=== PATIENT | female | born 1930 | race Caucasian/White ===

== ENCOUNTER 2017-03-22 10:38 | Inpatient (IN) | payer OTHER, BC ==
[2017-03-22 11:45] LABS: % IMMATURE GRANULYOCYTES 0.4 % (0.0-1.1); ABSOLUTE IMMATURE GRANULOCYTES 0.05 10^3/uL (0.00-0.10); ADD DIFF? NO; ADD MORPH? NO; ADD SCAN? NO; ATYPICAL LYMPHOCYTE FLAG 0 (0-99); FRAGMENT RBC FLAG 0 (0-99); HEMOGLOBIN 12.3 g/dL (12.6-16.3); LEFT SHIFT FLG 0 (0-99); LIPEMIA HEMOLYSIS FLAG 80 (0-99); MEAN CELL HEMOGLOBIN 29.4 pg (27.9-34.1); MEAN CELL HEMOGLOBIN CONCENTR. 33.2 g/dL (32.4-36.7); MEAN CELL VOLUME 88.3 fL (81.5-99.8); MEAN PLATELET VOLUME 9.9 fL (8.7-11.7); PLATELET CLUMPS FLAG 0 (0-99); PLATELET COUNT 251 10^3/uL (150-400); RED BLOOD CELL COUNT 4.19 10^6/uL (4.18-5.33); RED CELL DISTRIBUTION WIDTH 14.3 % (11.5-15.2)
--- NOTE | 2017-03-22 11:57 | EDPHY ---
H & P Stated Complaint: l elbow bursitis/drained monday at [facility] [place] placed on keflex/not better Time Seen by Provider: 03/22/17 11:15 HPI/ROS: CHIEF COMPLAINT: left elbow pain erythema HISTORY OF PRESENT ILLNESS: 86-year-old female arrives via private vehicle with her care provider. Patient states that on Monday (Today is Monday) her care provider noticed dorsal soft tissue swelling to the left elbow. She subsequently bone to [facility] and had the left olecranon bursa aspirated was started on Keflex at that time. Notes that there was no overlying erythema or induration at that time. The past 24 hours patient has developed erythema and induration to the dorsal left elbow. She has full pain-free range of motion including no pain with axial loading of the joint. No fever no chills. No nausea or vomiting. PRIMARY CARE PROVIDER: Dr. Alessia Bautista REVIEW OF SYSTEMS: A ten point review of systems was performed and is negative with the exception of the items mentioned in the HPI PAST MEDICAL & SURGICAL HISTORY: No immunocompromised condition SOCIAL HISTORY: lives by herself, has a Monday care provider PHYSICAL EXAM (Prior to examination, patient consented to physical exam, hands were washed and my usual and customary physical exam procedures followed) 1) GENERAL: Well-developed, well-nourished, alert and oriented. Appears to be in no acute distress. 2) HEAD: Normocephalic, atraumatic 3) HEENT: Pupils equal, round, reactive to light bilaterally. Sclera anicteric. Nasopharynx, oropharynx, clear, no lesions. Ears bilaterally with normal tympanic membranes. 4) NECK: Full range of motion, no meningeal signs. 5) LUNGS: Clear auscultation bilaterally, no wheezes, no rhonchi, no retractions. 6) HEART: Regular rate and rhythm, no murmur, no heave, no gallop. 7) ABDOMEN: No guarding, no rebound, no focal tenderness, negative McBurney's, negative Cheung's, negative Rovsing's, negative peritoneal sign, 8) MUSCULOSKELETAL: Left upper extremity: Puncture wounds over the olecranon bursal region noted. There is extensive erythema, induration around this area. No axillary adenopathy. She has full range of motion including supination pronation which is pain free. No pain with axial loading of the joint. No drainage. 9) BACK: No CVA tenderness, no midline vertebral tenderness, no fluctuance, no step-off, no obvious trauma, no visual or palpable abnormality. 10) SKIN: No rash, no petechiae. 11) Psychiatric: Patient is oriented X 3, there is no agitation. DIFFERENTIAL DIAGNOSIS: In no particular order including but not limited septic arthritis, septic bursitis, cellulitis - Personal History Current Tetanus/Diphtheria Vaccine: Unsure Tetanus Vaccine Date: 04/10/13 - Medical/Surgical History Hx Asthma: No Hx Chronic Respiratory Disease: No Hx Diabetes: No Hx Cardiac Disease: Yes Hx Renal Disease: No Hx Cirrhosis: No Hx Alcoholism: No Hx HIV/AIDS: No Hx Splenectomy or Spleen Trauma: No Other PMH: pacemaker ra - Social History Smoking Status: Never smoked Constitutional: Initial Vital Signs Temperature (C) 36.3 C 03/22/17 10:49 Heart Rate 80 03/22/17 10:49 Respiratory Rate 18 03/22/17 10:49 Blood Pressure 116/86 H 03/22/17 10:49 O2 Sat (%) 98 03/22/17 10:49 O2 Delivery Mode Room Air Allergies/Adverse Reactions: Penicillins Allergy (Severe, Verified 03/22/17 10:48) Hives hydrocodone [Hydrocodone] Allergy (Intermediate, Verified 03/22/17 10:48) nickel [Nickel] Allergy (Verified 03/22/17 10:48) Home Medications: Medication Instructions Recorded Ascorbic Acid [Vitamin C 500 mg 1,000 mg PO DAILY18 04/10/13 (*)] Brimonidine 0.15% [Alphagan P 1 drops EACHEYE BID 04/10/13 0.15%] Estrogens,Conjugated [Premarin 0.625 mg PO Q2D@04/10/13 0.625 MG (*)] Etanercept [Enbrel] 50 mg SQ [place]@04/10/13 Folic Acid [Folic Acid 1 MG (*)] 1 mg PO BID 04/10/13 Methotrexate Sodium [Methotrexate] 15 mg PO SA@04/10/13 Thyroid [[place] Thyroid 60 MG (*)] 60 mg PO DAILYAC 04/10/13 predniSONE [Prednisone] 3 mg PO DAILY@04/10/13 Acetaminophen [Tylenol ES 500 mg 1,000 mg PO DAILY PRN 05/09/14 (*)] Carvedilol [Coreg (*)] 3.125 mg PO DAILY@05/09/14 Dextroamphetamine/Amphetamine 5 mg PO DAILY 05/09/14 [Adderall Xr 5 mg Capsule] Docusate Sodium [Colace 100 MG (*)] 100 mg PO HS 05/09/14 Herbals/Supplements -Info Only 1 ea PO DAILY 05/09/14 Omeprazole [Prilosec] 40 mg PO HS 05/09/14 Sorbitol/Constantin St#1/Mal AC/Ca pH 0.3 gm MM TID PRN 05/09/14 [Numoisyn Lozenge] Spironolactone [Aldactone 25 MG 12.5 mg PO DAILY 05/09/14 (*)] Vit A/Vit C/Vit E/Zinc/Copper 1 each PO DAILY 05/09/14 [Preservision Areds Softgel] traMADol [Ultram 50 mg (*)] 50 - 100 mg PO TID PRN 05/09/14 Cholecalciferol (Vitamin D3) 2,000 unit PO BID 03/22/17 [Vitamin D3] Furosemide [Lasix 20 MG (*)] 20 mg PO DAILY 03/22/17 Ibuprofen [Motrin (*)] 400 mg PO Q6HRS PRN 03/22/17 Meloxicam [Mobic 7.5 mg] 7.5 mg PO DAILY 03/22/17 Memantine HCl 10 mg PO DAILY 03/22/17 Valsartan [Diovan (*)] 40 mg PO DAILY 03/22/17 lamoTRIgine [LamICTAL] 50 mg PO DAILY 03/22/17 risperiDONE [Risperdal 0.25mg (*)] 0.25 mg PO HS 03/22/17 Medical Decision Making - Diagnostics Imaging Results: Imaging Impressions Elbow X-Ray 03/22/17 11:33 Impression: Subcutaneous air over the dorsal aspect of the olecranon in the region of the bursa, potentially related to recent intervention or necrotizing fasciitis. Otherwise negative. Exam results discussed with Desmond Fish PA-C, at 12:50 PM. Extremity Venous Study 03/22/17 11:33 Impression: No evidence of vein thrombosis in the left arm. Results called and discussed with Desmond GARCIA on 03/22/2017 at 12:21 ED Course/Re-evaluation: Discussed case Dr. Peggy Nieves in the ER. Patient notes worsening erythema to her dorsal left elbow which is consistent with worsening cellulitis and has failed outpatient treatment with oral Keflex. I have reviewed her medical records. The bursal fluid aspirated 2 days ago is positive for gram-positive cocci. Sensitivities not available at this time. In reviewing the patient's old medical records she has a July 2011 nasopharyngeal swab which was MSSA. 11:54 a.m.: Phone consultation with hospitalistFannie, admit to Dr. garcía seen the. Have reviewed the patient's prior medical records and she has no history of MR , does have documented MSSA history. Will administer IV Ancef until sensitivities from 03/20 are available - Data Points Laboratory Results: Laboratory Results 03/22/17 11:30 03/22/17 11:30 03/22/17 03/22/17 11:30 11:30 WBC 11.74 10^3/uL H 10^3/uL (3.80-9.50) RBC 4.19 10^6/uL 10^6/uL (4.18-5.33) Hgb 12.3 g/dL L g/dL (12.6-16.3) Hct 37.0 % L % (38.0-47.0) MCV 88.3 fL fL (81.5-99.8) MCH 29.4 pg pg (27.9-34.1) MCHC 33.2 g/dL g/dL (32.4-36.7) RDW 14.3 % % (11.5-15.2) Plt Count 251 10^3/uL 10^3/uL (150-400) MPV 9.9 fL fL (8.7-11.7) Neut % (Auto) 77.8 % H % (39.3-74.2) Lymph % (Auto) 11.3 % L % (15.0-45.0) [place] % (Auto) 8.3 % % (4.5-13.0) Eos % (Auto) 1.4 % % (0.6-7.6) Baso % (Auto) 0.8 % % (0.3-1.7) Nucleat RBC Rel Count 0.0 % % (0.0-0.2) Absolute Neuts (auto) 9.13 10^3/uL H 10^3/uL (1.70-6.50) Absolute Lymphs (auto) 1.33 10^3/uL 10^3/uL (1.00-3.00) Absolute Monos (auto) 0.98 10^3/uL H 10^3/uL (0.30-0.80) Absolute Eos (auto) 0.16 10^3/uL 10^3/uL (0.03-0.40) Absolute Basos (auto) 0.09 10^3/uL 10^3/uL (0.02-0.10) Absolute Nucleated RBC 0.00 10^3/uL 10^3/uL (0-0.01) Immature Gran % 0.4 % % (0.0-1.1) Immature Gran # 0.05 10^3/uL 10^3/uL (0.00-0.10) Sodium 137 mEq/L mEq/L (134-144) Potassium 4.5 mEq/L mEq/L (3.5-5.2) Chloride 103 mEq/L mEq/L (97-110) Carbon Dioxide 26 mEq/l mEq/l (22-31) Anion Gap 8 mEq/L mEq/L (8-16) BUN 19 mg/dL mg/dL (7-23) Creatinine 1.0 mg/dL mg/dL (0.6-1.0) Estimated GFR 53 Glucose 162 mg/dL H mg/dL (70-100) Calcium 8.9 mg/dL mg/dL (8.5-10.4) Medications Given: Discontinued Medications Cefazolin Sodium/Dextrose (Ancef 1 Gm (Premix)) 50 mls @ 200 mls/hr IV EDNOW ONE PRN Reason: Protocol Stop: 03/22/17 12:11 Last Admin: 03/22/17 12:23 Dose: 50 mls Departure - Departure Disposition: [facility]
[2017-03-22 12:04] LABS: ANION GAP 8 mEq/L (8-16); CALCIUM 8.9 mg/dL (8.5-10.4); CARBON DIOXIDE 26 mEq/l (22-31); CHLORIDE 103 mEq/L (97-110); GLOMERULAR FILTRATION RATE 53; GLUCOSE 162 mg/dL (70-100); POTASSIUM 4.5 mEq/L (3.5-5.2); SODIUM 137 mEq/L (134-144)
[2017-03-22] MEDS ORDERED: ONDANSETRON DISINTEGRATING 4 MG TAB PO PRN (12:32)
[2017-03-22] MEDS ORDERED: ONDANSETRON 4 MG/2 ML VIAL IVP PRN (12:32)
[2017-03-22] MEDS ORDERED: VANCOMYCIN 500 MG in D5W 100 ML IV SCH (13:30)
[2017-03-22] MEDS ORDERED: [UNRECOGNIZED DRUG - OTHER] MM PRN (14:02)
[2017-03-22] MEDS ORDERED: SORBITOL MM PRN ×2 (14:02→14:22)
[2017-03-22] MEDS ORDERED: [UNRECOGNIZED DRUG - OTHER] MM PRN (14:22)
--- NOTE | 2017-03-22 14:23 | GHP ---
[f rep st] HISTORY AND PHYSICAL DATE OF ADMISSION: 03/22/2017 CHIEF COMPLAINT: Left elbow and arm pain. HISTORY OF PRESENT ILLNESS: An 86-year-old female with a history of rheumatoid arthritis, cardiac d isease with chronic bursal enlargement of her left elbow who presented [facility] the outside [facility]2017 and had drainage of her left elbow bursa. Since that time, has developed increas ing swelling of her left upper extremity, including her wrist, and erythema extending from her elbow , upper arm, and down her arm. Patient presented for evaluation after being told by urgent care to come to the ER. In the emergency department, patient denies any subjective fevers or chills. Denie s any headache, vision changes, dizziness chest pain, shortness of breath. Denies any abdominal daniel n, nausea, diarrhea, dysuria, hematuria, or lower extremity edema. She does have chronic joint comp laints from her rheumatoid arthritis, which have been stable. Denies any other rashes elsewhere. PAST MEDICAL HISTORY: 1. Rheumatoid arthritis. 2. History of heart block with a permanent pacemaker. 3. Hypothyroidism. 4. Hypertension. 5. Gastroesophageal reflux disease. 6. Chronic steroid use secondary to rheumatoid arthritis. 7. Glaucoma. 8. Cardiomyopathy. SOCIAL HISTORY: Negative for tobacco. Occasional alcohol. No illicit drugs or marijuana. FAMILY HISTORY: Positive for rheumatoid arthritis in her mother. ADVANCED DIRECTIVES: Patient wishes to be full cor, full tube. Her sister would be her medical dec ision maker. REVIEW OF SYSTEMS: A 10-point review of systems is negative with the exception of that reported in the HPI. PHYSICAL EXAMINATION: VITAL SIGNS: Blood pressure is 126/67, heart rate 78, respiratory rate 16, 9 5% on room air, 37.2. GENERAL: This is a very pleasant, healthy-appearing, elderly female in no ac [place] distress. HEENT: Notable for moist mucous membranes. Eye exam is negative for any icterus. C ARDIAC: Patient is regular rate and rhythm. A quiet systolic murmur is appreciated. PULMONARY: C lear to auscultation bilaterally with good respiratory effort. GASTROINTESTINAL: Positive bowel so unds. Abdomen is soft and nontender. MUSCULOSKELETAL: No lower extremity edema is appreciated. R ight upper extremity has no swelling. Left upper extremity, there is bursal inflammation and enlarg ement of the elbow. There is erythema extending midway up the upper arm as well as nearly to the wr ist on the lower dorsal aspect of the left arm. There is no streaking or axillary lymphadenopathy a ppreciated. SKIN: Notable erythema as described above. No other rashes are appreciated. NEUROLOG IC: She is alert and oriented x3. PSYCHIATRIC: She is pleasant and cooperative on interview and e xamination. DATA: White count is 11.7, hematocrit 37, platelets of 251. Bursal fluid from 03/20/2017 is growin g gram-positive cocci. Sensitivities are pending. Creatinine is 1.0, sodium 137. Elbow x-ray, gricel cottrell I personally reviewed and interpreted, shows no bony fractures. There is notable subcutaneous ai r over the olecranon. ASSESSMENT AND PLAN: This is an 86-year-old female presenting with left elbow pain. 1. Acute septic bursitis. Patient had fluid drained 03/20 with identified Gram positive cocci. Se nsitivities are not available at this time. Patient does, however, have no history of methicillin-r esistant Staphylococcus aureus in the past. I have discussed the case with Infectious Disease. The y will consult and said vancomycin is a reasonable choice to begin with. I will write for this curr ently and allow them to make changes going forward. Suspect we will need to involve Orthopedic Surg loreto but again, will wait for Infectious Disease to evaluate the patient. 2. Acute cellulitis associated with recent bursal drainage. Again, will initiate vancomycin and tr eat with antiinflammatories. 3. Rheumatoid arthritis. Patient is on chronic low-dose prednisone, which we will continue at this time, as well as her other RA medications. 4. History of complete heart block. Patient has a permanent pacemaker. Will continue her beta blo ckade. 5. Cardiomyopathy. Patient appears clinically compensated. Will continue her stable home medicati ons without alteration at this time. 6. Prophylaxis with Lovenox. DIET: Cardiac. DISPOSITION: I expect greater than 2 midnights. The patient is 86, presenting with septic bursitis requiring IV antibiotics. Infectious Disease and likely Orthopedic consultation I have discussed t he case with the emergency room physician. Patient will be triaged to the medical-surgical floor [facility]. /[id number]/[facility]
[2017-03-22] MEDS: ASCORBIC ACID 500 MG TAB PO SCH (19:58)
[2017-03-22] MEDS: traMADol 50 MG TAB PO PRN (19:58)
[2017-03-22] MEDS: risperiDONE 0.25 MG TAB PO SCH (19:59)
[2017-03-22] MEDS: DOCUSATE SODIUM 100 MG CAP PO SCH (19:59)
[2017-03-22] MEDS: PANTOPRAZOLE SODIUM 40 MG TAB PO SCH (19:59)
[2017-03-22] MEDS: CHOLECALCIFEROL VIT D3 2,000 UNITS TAB/CAP PO SCH (19:59)
[2017-03-22] MEDS: FOLIC ACID 1 MG TAB PO SCH (19:59)
--- NOTE | 2017-03-22 20:20 | GCON ---
[f rep st] CONSULTATION INFECTIOUS DISEASE CONSULTATION DATE OF CONSULTATION: 03/22/2017 REFERRING PHYSICIAN: Connie Cobos MD REASON FOR CONSULTATION: Septic bursitis of the left olecranon. 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 Subsequently, cultures are showing gram-positi ve cocci with ID and the sensitivities pending. In the interim, patient had progressive erythema on her arm and presented to the emergency room because of no improvement and microbiologic evidence. In the emergency room, patient underwent blood cultures, laboratory evaluation and x-ray. X-ray alex wed some air in the subcutaneous tissues. The patient was admitted to the hospital for further lamonte gement. The patient was given a dose of cefazolin in the emergency room and subsequently started on vancomycin. PAST MEDICAL HISTORY: 1. Rheumatoid arthritis since her 30s. 2. History of heart block with pacemaker in place. 3. Hypothyroidism. 4. Hypertension. 5. Gastroesophageal reflux disease. 6. Glaucoma. 7. Cardiomyopathy. PAST SURGICAL HISTORY: Tonsillectomy and adenectomy in childhood. SOCIAL HISTORY: No tobacco. Occasional alcohol. No illicits. Patient moved to [place] in 1979. She is a . She has 1 natural child, 3 adopted children. 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 FAMILY HISTORY: Positive for rheumatoid arthritis in her mother. REVIEW OF SYSTEMS: A complete 10-point review of systems was performed and is negative except as me ntioned in the HPI. ALLERGIES: Penicillin causes an itchy rash in 1953. Patient strongly does not want a penicillin ag ent. MEDICATIONS: The patient received 1 g dose of cefazolin, 1 dose of vancomycin 500 mg. She is on Ty lenol, vitamin C, Alphagan drops, Coreg 325 daily, vitamin D 2000 units twice daily, Colace 100 mg d aily, Lovenox, Premarin 0.625, folic acid 1 mg daily, Lasix 20 mg daily, Lamictal 50 mg daily, Namen da 10 mg daily, Zofran as needed, Protonix 40 mg daily, Risperdal 0.25 mg at bedtime, Aldactone 12.5 mg daily, thyroid medicine 60 mg daily, Ultram 50-100 as needed, valsartan 40 mg daily. PHYSICAL EXAMINATION: VITAL SIGNS: Blood pressure 126/67, heart rate 78, respiratory rate 16, satu ration 95% on room air, temperature 37.2. GENERAL: This is a very pleasant, elderly woman, talkati ve in no acute distress. HEENT: Pupils reactive bilaterally. Oropharynx: No oral ulcerations or exudates. Fair dentition. NECK: Supple. No lymphadenopathy. CARDIOVASCULAR: Regular rate. She had a pacemaker placed in the left upper chest without redness or tenderness. CHEST: Clear to ausc ultation bilaterally except for crackles in the left base. ABDOMEN: Soft, nontender. Bowel sounds are present. EXTREMITIES: She had erythema to the mid upper arm with swelling of her arm overall and obvious bursal swelling that was functioning. She had full range of motion of her left elbow. She had tenderness to palpation over the lateral portion of her arm but no crepitus was detected. S he had obvious changes in the upper extremities consistent with chronic rheumatoid arthritis. SKIN: No rashes other than erythema noted as above. Neurologic: She is alert and oriented x4. Motor w as grossly intact. LABORATORY: White count 11,000, hematocrit 37, platelets 251, 77% neutrophils. Creatinine 1.0. CR P, LFTs are pending at time of dictation. ASSESSMENT AND PLAN: An 86-year-old woman with rheumatoid arthritis on Enbrel and chronic steroids presents with septic bursitis of the left elbow with associated cellulitis. Clinically, patient's e xam is not consistent with necrotizing fasciitis. Air within the soft tissues may have been related to prior aspiration. 1. Left upper extremity cellulitis. 2. Left olecranon septic bursitis with culture showing staphylococcus species. 3. Immune compromised secondary to Enbrel therapy. RECOMMENDATIONS: 1. Monitor blood cultures as patient is at high risk for complication of bacteremia. 2. Would adjust vancomycin to 1 g IV daily with normal creatinine clearance for age, but suspect guevara briggs has MSSA as remote cultures from 2011 show MSSA. 3. Would recommend consultation of Orthopedics as septic bursitis usually requires repeated aspirat ion and/or washout for resolution. 4. Patient educated on elevation of left lower extremity. 5. Discussed with patient need for IV antibiotics and PICC line placement after 48 hours of antibio tics. Discussed risks and benefits of IV antibiotics and potential need for surgical intervention. Time was 70 minutes with greater than 50% time spent with education and counseling of issues describ ed above. We will continue to follow patient on a daily basis. Thank you for this consultation. /[id number]/[facility]
[2017-03-22 20:29] LABS: ALBUMIN 3.5 g/dL (3.5-5.0); BILIRUBIN,TOTAL 0.5 mg/dL (0.1-1.4); BILIRUBIN-CONJUGATED 0.3 mg/dL (0.0-0.5); BILIRUBIN-UNCONJUGATED 0.2 mg/dL (0.0-1.1); TOTAL PROTEIN 6.5 g/dL (6.3-8.2)
[2017-03-22 20:41] LABS: C-REACTIVE PROTEIN 134.5 mg/L (<10.0)
[2017-03-22] MEDS ORDERED: NON-FORMULARY NEW DRUG (Omeprazole [Prilosec] 40 MG) PO SCH (21:00)
[2017-03-22] MEDS ORDERED: NON-FORMULARY NEW DRUG (Cholecalciferol (Vitamin D3) [Vitamin D3] 2,000 UNIT) PO SCH (21:00)
[2017-03-22] MEDS: BRIMONIDINE 0.15% 5 ML OPHT.BTL EACHEYE SCH (21:58)
[2017-03-22] MEDS: IBUPROFEN 200 MG TAB PO PRN (23:44)
[2017-03-23 05:33] LABS: % IMMATURE GRANULYOCYTES 0.7 % (0.0-1.1); ABSOLUTE IMMATURE GRANULOCYTES 0.08 10^3/uL (0.00-0.10); ADD DIFF? NO; ADD MORPH? NO; ADD SCAN? NO; ATYPICAL LYMPHOCYTE FLAG 0 (0-99); FRAGMENT RBC FLAG 0 (0-99); HEMATOCRIT 32.6 % (38.0-47.0); HEMOGLOBIN 10.9 g/dL (12.6-16.3); LEFT SHIFT FLG 10 (0-99); LIPEMIA HEMOLYSIS FLAG 80 (0-99); MEAN CELL HEMOGLOBIN 28.8 pg (27.9-34.1); MEAN CELL HEMOGLOBIN CONCENTR. 33.4 g/dL (32.4-36.7); MEAN CELL VOLUME 86.2 fL (81.5-99.8); MEAN PLATELET VOLUME 9.8 fL (8.7-11.7); PLATELET CLUMPS FLAG 0 (0-99); PLATELET COUNT 234 10^3/uL (150-400); RED BLOOD CELL COUNT 3.78 10^6/uL (4.18-5.33)
[2017-03-23 05:48] LABS: ANION GAP 6 mEq/L (8-16); CALCIUM 8.4 mg/dL (8.5-10.4); CARBON DIOXIDE 24 mEq/l (22-31); CHLORIDE 104 mEq/L (97-110); CREATININE 1.1 mg/dL (0.6-1.0); GLOMERULAR FILTRATION RATE 47; GLUCOSE 84 mg/dL (70-100); POTASSIUM 4.1 mEq/L (3.5-5.2); SODIUM 134 mEq/L (134-144)
[2017-03-23] MEDS: THYROID 60 MG TAB PO SCH (07:44)
[2017-03-23] MEDS: VALSARTAN 40 MG TAB PO SCH (08:44)
[2017-03-23] MEDS: SPIRONOLACTONE 25 MG TAB PO SCH (08:44)
[2017-03-23] MEDS: PRESERVISION AREDS2 FORMULA EYE VIT 1 EACH PO SCH (08:44)
[2017-03-23] MEDS: MEMANTINE HCL 5 MG TAB PO SCH (08:45)
[2017-03-23] MEDS: FUROSEMIDE 20 MG TAB PO SCH (08:45)
[2017-03-23] MEDS: FOLIC ACID 1 MG TAB PO SCH ×2 (08:46→20:07)
[2017-03-23] MEDS: lamoTRIgine 100 MG TAB PO SCH (08:46)
[2017-03-23] MEDS: predniSONE 1 MG TAB PO SCH (08:47)
[2017-03-23] MEDS: CHOLECALCIFEROL VIT D3 2,000 UNITS TAB/CAP PO SCH ×2 (08:47→20:07)
[2017-03-23] MEDS: CARVEDILOL 3.125 MG TAB PO SCH (08:48)
[2017-03-23] MEDS: DEXTROAMPHETAMINE PO SCH (08:56)
[2017-03-23] MEDS: AMPHETAMINE PO SCH (08:56)
[2017-03-23] MEDS ORDERED: D5W IV SCH (09:00)
[2017-03-23] MEDS ORDERED: NON-FORMULARY NEW DRUG (Meloxicam [Mobic 7.5 Mg] 7.5 MG) PO SCH (09:00)
[2017-03-23] MEDS ORDERED: VANCOMYCIN 750 MG in D5W 150 ML IV SCH (09:00)
[2017-03-23] MEDS ORDERED: AMPHETAMINE PO SCH (09:00)
[2017-03-23] MEDS ORDERED: DEXTROAMPHETAMINE PO SCH (09:00)
[2017-03-23] MEDS ORDERED: Herbals/Supplements -Info Only PO SCH (09:00)
[2017-03-23] MEDS ORDERED: NON-FORMULARY NEW DRUG (Vit A/Vit C/Vit E/Zinc/Copper [Preservision Areds Softgel] 1 EACH) PO SCH (09:00)
[2017-03-23] MEDS ORDERED: VANCOMYCIN HCL/NORMAL SALINE 250 ML IV SCH (09:00)
[2017-03-23] MEDS ORDERED: VANCOMYCIN IV SCH (09:00)
[2017-03-23] MEDS ORDERED: NON-FORMULARY NEW DRUG (Memantine Hcl [Memantine Hcl] 10 MG) PO SCH (09:00)
[2017-03-23] MEDS: ENOXAPARIN 40 MG/0.4 ML SYR SC SCH (10:46)
[2017-03-23] MEDS: BRIMONIDINE 0.15% 5 ML OPHT.BTL EACHEYE SCH ×2 (10:46→20:07)
[2017-03-23] MEDS ORDERED: BUPIVACAINE 0.5% 30 ML SDV ONE (13:01)
[2017-03-23] MEDS ORDERED: BACITRACIN 50,000 UNITS/10 ML SYR IRR ONE (13:03)
--- NOTE | 2017-03-23 13:08 | HOSPPROG ---
Hospitalist Progress Note Assessment/Plan: Arlyn Lema is an 86 y/o female who presented to the ER with left elbow and arm pain. Today is my first encounter with the patient, chart reviewed. Discussed her care with Dr Brian and Dr Lema. *Septic arthritis of left olecranon vanco I & D today w Dr Mei *RA on chronic steroid us *Hx of CHB/pacer *cardiomyopathy *anemia follow *renal insufficiency will follow *DVT prophylaxis LMWH *Plan: to OR this afternoon with orthopedics / appreciate their involvement/ repeat labs in a.m. Subjective: Arlyn said the area above the left elbow is painful. Objective: Vital Signs Temp Pulse Resp BP Pulse Ox 36.8 C 87 18 101/66 95 03/23/17 07:58 03/23/17 07:58 03/23/17 07:58 03/23/17 07:58 03/23/17 07:58 Laboratory Results 03/23/17 04:57 03/23/17 04:57 03/22/17 03/23/17 03/24/17 05:59 05:59 05:59 Intake Total 50 Balance 50 - Physical Exam Constitutional: no apparent distress, appears nourished Ears, Nose, Mouth, Throat: hearing normal Cardiovascular: regular rate and rhythym, systolic murmur (soft) Respiratory: no respiratory distress Gastrointestinal: normoactive bowel sounds Skin: warm, other (left elbow boggy with dry skin/ slightly warm, some erythema noted toward the base of the triceps ) Musculoskeletal: full muscle strength Neurologic: AAOx3 Psychiatric: interacting appropriately, not anxious, not encephalopathic ICD10 Worksheet Patient Problems: Problems Problem Status Onset Cardiomyopathy Acute Mitral valve regurgitation Acute S/P biventricular cardiac pacemaker procedure Acute
--- NOTE | 2017-03-23 13:15 | SOAPPROG ---
[facility] Progress Note Assessment/Plan: Assessment: L elbow septic olecranon bursitis (+ staph), now on Vanco. Per med svce, pt is med clear for this minor procedure. Plan: Arlyn will require I&D, however, we must delay surgery until 430pm today , as she was not made NPO until I was consulted today. She finished b'fast at 0830 and black coffee at 1045. In addition, she received enox 40 SQ this AM, making her higher risk for selina-op bleeding @ surgi-site. At this time, please assure the following: -Strict NPO -D/c enoxaparin, use mech proph, including knee-hi TEDs and SCDs BLEs -Cont Vanco dosing per standard Rx'd schedule -Consent in chart after discussing R/B/A to surgery -In the future, I strongly urge you to consider consulting ortho upon admission for clear surgical entities such as septic bursitis, so the patient can be appropriately managed pre-op in prep for this required, urgent surgery -Call with any questions or concerns 03/23/17 13:15 Subjective: 86yo F with L elbow swelling, redness, warmth and fluid collection, recently underwent aspiration at an , now growing staph. She was admitted yesterday for septic olectranon bursitis, I've been consulted today for eval/management. She denies any significant pain or stiffness, noting she's had this swollen area for weeks. Objective: Vital Signs Temp Pulse Resp BP Pulse Ox 36.8 C 87 18 101/66 95 03/23/17 07:58 03/23/17 07:58 03/23/17 07:58 03/23/17 07:58 03/23/17 07:58 Laboratory Results 03/23/17 04:57 03/23/17 04:57 03/22/17 03/23/17 03/24/17 05:59 05:59 05:59 Intake Total 50 Balance 50 Afeb, VSS. + olec FC c/w bursitis. LUE compartments soft, no SQ crep, +edema/ calor/eythema about elbow. ROM 0-140, P&S 90. DNVI BUEs. CRP 135. WBC 11+. ICD10 Worksheet Patient Problems: Problems Problem Status Onset Cardiomyopathy Acute Mitral valve regurgitation Acute S/P biventricular cardiac pacemaker procedure Acute
--- NOTE | 2017-03-23 13:46 | PCMIDPN ---
Assessment/Plan: Assessment: L olecranon bursitis -- subacute. Prior aspirate cultures with both staph simulans and staph epidermidis. Both of these could cause subacute presentation. Regardless at this point the inflammation is severe enough that it requires I and D. Going later today to OR. Continue Vancomycin. Plan: 1) Continue IV Vancomycin. 2) Await OR results. Subjective: Patient is sitting up in her chair. no complaints. Tolerating Vancomycin without issue. Objective: Vancomycin #2 Vital Signs Temp Pulse Resp BP Pulse Ox 36.8 C 87 18 101/66 95 03/23/17 07:58 03/23/17 07:58 03/23/17 07:58 03/23/17 07:58 03/23/17 07:58 Laboratory Results 03/23/17 04:57 03/23/17 04:57 03/22/17 03/23/17 03/24/17 05:59 05:59 05:59 Intake Total 50 Balance 50 C-Reactive Protein 134.5 mg/L (<10.0) H 03/22/17 19:54 - Physical Exam General Appearance: WD/WN, alert, no apparent distress, non-toxic Respiratory: lungs clear, normal breath sounds, No respiratory distress Cardiac/Chest: regular rate, rhythm, No tachycardia Extremities: non-tender, inflammation, swelling, erythema, No normal inspection Skin: normal color, warm/dry, No rash Neuro/Psych: alert, normal mood/affect, oriented x 3 ICD10 Worksheet Patient Problems: Problems Problem Status Onset Cardiomyopathy Acute Mitral valve regurgitation Acute S/P biventricular cardiac pacemaker procedure Acute
--- NOTE | 2017-03-23 16:13 | GOP ---
[f rep st] OPERATIVE REPORT DATE OF OPERATION: 03/23/2017 SURGEON: Wan Brian MD CONVALESCENT SITTER: Uma Turner PA-C. ANESTHESIA: General. ANESTHESIOLOGIST: Neal Rust MD. PREOPERATIVE DIAGNOSIS: Left elbow septic olecranon bursitis. POSTOPERATIVE DIAGNOSIS: Left elbow septic olecranon bursitis. PROCEDURE PERFORMED: Left elbow incision, irrigation, drainage, and debridement with complete olecranon bursectomy. INDICATIONS: This is an 86-year-old female with a long-standing history of left elbow rheumatoid-associated olecranon bursitis. She has a known diagnosis of RA. Apparently, 2 or so days prior to admission on 03/22/2017, the patient was seen at an urgent care and underwent elbow aspiration. These cultures are now reportedly growing staphylococcus on culture and sensitivity. Finalized speciation and sensitivities are not available. The patient has been admitted to the medicine service, and Infectious Disease was consulted. They have asked for me to consult on this inpatient and assist with surgical management. Pre- op evaluation was consistent with septic olecranon bursitis of left elbow. After discussing the risks, benefits, and alternatives to surgery, the patient agrees to proceed with surgery as listed above. The risks, benefits, and alternatives were discussed throughout, and the patient has provided a signed and witnessed informed consent, which was placed in her chart. All of her questions were answered prior to surgery. FINDINGS: Left elbow septic-appearing olecranon bursitis with purulence. No signs of intra-articular extension or more severe, extensive soft tissue infection. DESCRIPTION OF PROCEDURE: The patient was identified in the preoperative holding area, and her left elbow was signed, designating it as the operative site. She was confirmed in bilateral lower extremity LUCAS and SCDs. She had been treated with vancomycin per her standard schedule, last dose ~9am. No additional prophylactic antibiotics were utilized. The patient was taken back to the operating room, placed supine on the OR table, and general anesthesia was obtained. The left upper extremity was wrapped proximally with cast padding and a nonsterile tourniquet, which was not used during surgery, and then prepped and draped in the usual sterile manner. Standard 4cm curvilinear posterolateral incision was placed over the obvious fluid collection over the olecranon. Full-thickness dermal incision was made with a #15 blade, and then careful dissection was taken down through the subcutaneous tissues with spreading. Obvious fluid was encountered, i.e., yellow, cloudy-appearing fluid. This was captured, and swab, fluid and tissue cultures were sent. The wound was copiously irrigated with sterile saline, a total of 3 L with bacitracin. The wound was thoroughly debrided, and a complete bursectomy was performed using Metzenbaum scissors, as well as a curette and rongeur. Once all necrotic and/or nonviable tissues and infectious tissues were removed from the olecranon bursal region and the entire bursa was resected, the wound was further irrigated with sterile saline. Once all work was completed, a drain was placed in the bursa out through a separate stab incision to bulb suction. This was sutured in place. The wound was then closed in layers with 2-0 PDS, and the skin was closed with multiple interrupted 3-0 nylon sutures. Sterile postoperative surgical dressings were applied, and a posterior long-arm splint was applied. The left upper extremity was placed in a sling. The anesthesia service then took over to wake the patient up. TOURNIQUET TIME: Zero. SPECIMENS: Swab, tissue and fluid cultures were sent for culture and sensitivity. ESTIMATED BLOOD LOSS: 40 cc. DRAINS: One bulb suction drain sutured in place. IMPLANTS: None. COMPLICATIONS: None. DISPOSITION: The patient was extubated and transferred to PACU in stable condition. /[id number]/MODL MTDD
[2017-03-23] MEDS ORDERED: fentaNYL 100 MCG/2 ML INJ ONE ×2 (16:25→17:32)
[2017-03-23] MEDS ORDERED: PROPOFOL/EMULSION 500 MG/50 ML BOTTLE IV ONE (16:25)
[2017-03-23] MEDS ORDERED: DEXAMETHASONE 4 MG/ML VIAL ONE (16:25)
[2017-03-23] MEDS ORDERED: ONDANSETRON 4 MG/2 ML VIAL ONE (16:25)
[2017-03-23] MEDS ORDERED: LIDOCAINE 2% JELLY 5 ML TUBE ONE (16:29)
--- NOTE | 2017-03-23 17:23 | POSTOPPROG ---
Post Op Note Date of Operation: 03/23/17 Surgeon: Wan Brian [employer]heric [employer] Professor: Uma Turner PA-C Anesthesia: GET(General Endotracheal) Pre-op Diagnosis: Left septic olecranon bursitis Post-op Diagnosis: Left septic olecranon bursitis Procedure: Incision, drainage and debridement left elbow Inf/Abcess present in the surg proc area at time of surgery?: Yes Depth: Deep Incisional (Fascial) EBL: Minimal Drains: Other
--- NOTE | 2017-03-23 18:24 | GCON ---
[f rep st] CONSULTATION DATE OF CONSULTATION: 03/23/2017 CHIEF COMPLAINT: Left elbow swelling. HISTORY OF PRESENT ILLNESS: This is an 86-year-old female complaining of left elbow swelling x4 day s. The patient states she has a history of chronic olecranon bursitis and presented to the [facility] on March 20, 2017, at which point it was aspirated and sent for cultures, now growing gram-positive cocci. The patient returned to Urgent Care on March 22, 2017, for increasing swellin g and redness of the left elbow. Urgent Care then [facility] where she was admitted and started on IV vancomycin per Infectious Disease. Since, the patient states the pain in her left elbow has been minimal, and she has no discomfort with range of motion. The patient received enoxaparin 40 mg subcutaneously this morning. The patient last ate breakfast at 8:30 this morning, and had water and black coffee at 10:45 a.m. The patient states she otherwise feels well without any fever, chills, numbness, tingling, or weakne ss. 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 PAST SURGICAL HISTORY: Tonsillectomy and adenectomy in childhood. SOCIAL HISTORY: The patient lives independently in [place]. She has occasional alcohol use and den ies any tobacco or illicit drug use. 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 FAMILY HISTORY: Positive for rheumatoid arthritis in her mother and diabetes in her sister. REVIEW OF SYSTEMS: No other complaints after a 10-point review of systems. ALLERGIES: Penicillin and nickel. MEDICATIONS: Please see electronic health record for a complete list. PHYSICAL EXAMINATION: GENERAL: The patient is a healthy, well-appearing female. She is alert, act maggy, and in no acute distress. HEENT: Head is normocephalic and atraumatic. Nose, ears, and mouth appear normal. Eye motion is intact. NECK: Normal in appearance with midline trachea. LUNGS: C hest motion appears normal. Respirations are nonlabored. MUSCULOSKELETAL: Skin is intact over the left elbow with palpable fluid in the left olecranon bursa with surrounding erythema and calor. Fu ll range of motion of the left shoulder, elbow, wrist, and hand without discomfort. Strength and se nsation are intact. Strength is 5/5. Radial pulse 2+ with brisk capillary refill. Calves are soft and nontender with negative Homans. TEDs and SCDs are in place. SKIN: Please see dictation above . Otherwise, no other abrasions, ecchymosis or tattoos. NEUROLOGICAL: Appears alert and oriented to person, place, and time. Speech is fluid and fluent. PSYCHIATRIC: Affect is normal. ASSESSMENT AND PLAN: This is a left septic olecranon bursitis with cellulitis in the left upper ext remity. The patient will be taken to the operating room later this afternoon for incision and drainage of th e left elbow. The patient is to remain on nothing by mouth until after surgery. Hold any additiona l anticoagulation until after surgery. Continue antibiotics per Infectious Disease. Pain control a s needed. The patient understands and agrees with the treatment plan today, and all of her questions were answ ered. /[id number]/MODL
[2017-03-23] MEDS: ASCORBIC ACID 500 MG TAB PO SCH (18:32)
[2017-03-23] MEDS: traMADol 50 MG TAB PO PRN (19:32)
[2017-03-23 19:47] LABS: SEDIMENTATION RATE 33 MM/HR (0-30)
[2017-03-23] MEDS: risperiDONE 0.25 MG TAB PO SCH (20:07)
[2017-03-23] MEDS: PANTOPRAZOLE SODIUM 40 MG TAB PO SCH (20:07)
[2017-03-23] MEDS: DOCUSATE SODIUM 100 MG CAP PO SCH (20:07)
[2017-03-24 06:02] LABS: ANION GAP 7 mEq/L (8-16); CALCIUM 8.5 mg/dL (8.5-10.4); CARBON DIOXIDE 26 mEq/l (22-31); CHLORIDE 104 mEq/L (97-110); CREATININE 1.1 mg/dL (0.6-1.0); GLOMERULAR FILTRATION RATE 47; GLUCOSE 114 mg/dL (70-100); POTASSIUM 4.7 mEq/L (3.5-5.2); SODIUM 137 mEq/L (134-144)
[2017-03-24] MEDS: IBUPROFEN 200 MG TAB PO PRN (06:05)
--- NOTE | 2017-03-24 08:25 | PCMIDPN ---
Assessment/Plan: #Left septic olecranon bursitis, cultures show Staphylococcus epidermidis and Simulans both susceptible to cefazolin. Majority of erythema left upper extremity is resolved, drain was pulled today. Still with some residual swelling LUE --DC vancomycin --start renal dose cefazolin at 1 g IV Q 8 --PICC line tomorrow if blood cx neg #Confusion: suspect some early dementia that hospitalization is exacerbating. Subjective: a bit confused today pain improved cannot remember that had surgery yesterday Objective: Vital Signs Temp Pulse Resp BP Pulse Ox 36.3 C 83 18 112/60 96 03/24/17 08:00 03/24/17 08:00 03/24/17 08:00 03/24/17 08:00 03/24/17 08:00 Microbiology 03/23/17 16:47 Gram Stain - Final Elbow - Tissue 03/23/17 16:47 Gram Stain - Final Elbow - Eswab 03/23/17 16:47 Gram Stain - Final Elbow - Aspirate Laboratory Results 03/23/17 04:57 03/24/17 04:27 03/23/17 03/24/17 03/25/17 05:59 05:59 05:59 Intake Total 50 1175 Output Total 785 Balance 50 390 ESR 33 MM/HR (0-30) H 03/23/17 04:57 C-Reactive Protein 134.5 mg/L (<10.0) H 03/22/17 19:54 - Physical Exam General Appearance: alert, no apparent distress EENT: pale conjunctiva, No scleral icterus Respiratory: lungs clear, No accessory muscle use Neck: supple Cardiac/Chest: regular rate, rhythm, No systolic murmur Extremities: swelling (L UE but improved) Abdomen: non-tender, soft Skin: No rash Neuro/Psych: alert, normal mood/affect, disoriented to time - Time Spent With Patient Time Spent with Patient: greater than 25 minutes (care coordinated with ortho) Time Spent with Patient: Greater than 25 minutes spent on this patients care, greater than 50% of time spent counseling, educating, and coordinating care regarding the above mentioned plan. ICD10 Worksheet Patient Problems: Problems Problem Status Onset Cardiomyopathy Acute Mitral valve regurgitation Acute S/P biventricular cardiac pacemaker procedure Acute
[2017-03-24] MEDS: ACETAMINOPHEN 325 MG TAB PO PRN (09:02)
[2017-03-24] MEDS: MEMANTINE HCL 5 MG TAB PO SCH (09:03)
[2017-03-24] MEDS: FUROSEMIDE 20 MG TAB PO SCH (09:03)
[2017-03-24] MEDS: FOLIC ACID 1 MG TAB PO SCH ×2 (09:03→20:17)
[2017-03-24] MEDS: THYROID 60 MG TAB PO SCH (09:03)
[2017-03-24] MEDS: PRESERVISION AREDS2 FORMULA EYE VIT 1 EACH PO SCH (09:04)
[2017-03-24] MEDS: VALSARTAN 40 MG TAB PO SCH (09:04)
[2017-03-24] MEDS: lamoTRIgine 100 MG TAB PO SCH (09:04)
[2017-03-24] MEDS: CARVEDILOL 3.125 MG TAB PO SCH (09:04)
[2017-03-24] MEDS: predniSONE 1 MG TAB PO SCH (09:05)
[2017-03-24] MEDS: CHOLECALCIFEROL VIT D3 2,000 UNITS TAB/CAP PO SCH ×2 (09:06→20:17)
[2017-03-24] MEDS: SPIRONOLACTONE 25 MG TAB PO SCH (09:06)
[2017-03-24] MEDS: BRIMONIDINE 0.15% 5 ML OPHT.BTL EACHEYE SCH ×2 (09:06→20:17)
--- NOTE | 2017-03-24 09:06 | SOAPPROG ---
SOAP Progress Note Assessment/Plan: Assessment/Plan: s/p irrigation, drainage, and debridement of left septic olecranon bursitis POD#1 - Continue pain control - Discontinued drain today - Dressing change today - NWB RUE - Remain in posterior long arm splint - Continue antibiotics per ID - Continue SCDs/TEDs 03/24/17 09:03 Subjective: Pt states she is having minimal pain in the left elbow. She is having difficulties remembering the events of yesterday and seems confused this morning , frequently repeating questions. Pt denies fever, chills, chest pain, SOB, abdominal pain, N/V/D, numbness, tingling, weakness, and calf pain. Objective: Vital Signs Temp Pulse Resp BP Pulse Ox 36.3 C 83 18 112/60 96 03/24/17 08:00 03/24/17 08:00 03/24/17 08:00 03/24/17 08:00 03/24/17 08:00 Microbiology 03/23/17 16:47 Gram Stain - Final Elbow - Tissue 03/23/17 16:47 Gram Stain - Final Elbow - Eswab 03/23/17 16:47 Gram Stain - Final Elbow - Aspirate Laboratory Results 03/23/17 04:57 03/24/17 04:27 03/23/17 03/24/17 03/25/17 05:59 05:59 05:59 Intake Total 50 1175 Output Total 785 Balance 50 390 Physical Exam - Physical Exam General Appearance: alert, no apparent distress Skin: normal color, warm/dry, other (incision site c/d/i without surrounding erythema, calor, or drainage ) Lymphatic: no adenopathy Extremities: normal capillary refill, other (Radial pulse 2+ b/l), No pedal edema, No calf tenderness, No swelling, No Leroy's sign Neuro/Psych: no motor/sensory deficits, alert, disoriented to time ICD10 Worksheet Patient Problems: Problems Problem Status Onset Cardiomyopathy Acute Mitral valve regurgitation Acute S/P biventricular cardiac pacemaker procedure Acute
[2017-03-24] MEDS: AMPHETAMINE PO SCH (09:07)
[2017-03-24] MEDS: DEXTROAMPHETAMINE PO SCH (09:07)
[2017-03-24] MEDS: ESTROGENS,CONJUGATED 0.625 MG TAB PO SCH (09:52)
[2017-03-24] MEDS: ENOXAPARIN 40 MG/0.4 ML SYR SC SCH (09:52)
--- NOTE | 2017-03-24 11:03 | HOSPPROG ---
Hospitalist Progress Note Assessment/Plan: Arlyn Lema is an 86 y/o female who presented to the ER with left elbow and arm pain. Today is my first encounter with the patient, chart reviewed. *Septic arthritis of left olecranon changed from Vancomycin to Cefazolin POD #1 s/p I & D and debridement *RA on chronic steroid us *Hx of CHB/pacer *cardiomyopathy *anemia follow *renal insufficiency creat 1.1 *DVT prophylaxis LMWH *Plan: continue current treatment Subjective: Arlyn has no complaints/ knew she was confused this morning. Objective: Vital Signs Temp Pulse Resp BP Pulse Ox 36.3 C 83 18 112/60 96 03/24/17 08:00 03/24/17 08:00 03/24/17 08:00 03/24/17 08:00 03/24/17 08:00 Microbiology 03/23/17 16:47 Gram Stain - Final Elbow - Tissue 03/23/17 16:47 Gram Stain - Final Elbow - Eswab 03/23/17 16:47 Gram Stain - Final Elbow - Aspirate Laboratory Results 03/23/17 04:57 03/24/17 04:27 03/23/17 03/24/17 03/25/17 05:59 05:59 05:59 Intake Total 50 1175 Output Total 785 Balance 50 390 - Physical Exam Constitutional: no apparent distress, appears nourished, not in pain Eyes: PERRL Ears, Nose, Mouth, Throat: hearing normal Cardiovascular: regular rate and rhythym Respiratory: no respiratory distress Gastrointestinal: normoactive bowel sounds Skin: other (left arm in dressing) Musculoskeletal: no muscle tenderness Neurologic: AAOx3 Psychiatric: interacting appropriately, not anxious ICD10 Worksheet Patient Problems: Problems Problem Status Onset Cardiomyopathy Acute Mitral valve regurgitation Acute S/P biventricular cardiac pacemaker procedure Acute
[2017-03-24] MEDS: ASCORBIC ACID 500 MG TAB PO SCH (16:31)
[2017-03-24] MEDS: PANTOPRAZOLE SODIUM 40 MG TAB PO SCH (20:17)
[2017-03-24] MEDS: risperiDONE 0.25 MG TAB PO SCH (20:17)
[2017-03-24] MEDS: DOCUSATE SODIUM 100 MG CAP PO SCH (20:17)
[2017-03-25] MEDS: IBUPROFEN 200 MG TAB PO PRN (04:27)
[2017-03-25 05:29] LABS: % IMMATURE GRANULYOCYTES 0.7 % (0.0-1.1); ABSOLUTE IMMATURE GRANULOCYTES 0.07 10^3/uL (0.00-0.10); ADD DIFF? NO; ADD MORPH? NO; ADD SCAN? NO; ATYPICAL LYMPHOCYTE FLAG 10 (0-99); FRAGMENT RBC FLAG 0 (0-99); HEMATOCRIT 32.9 % (38.0-47.0); HEMOGLOBIN 10.8 g/dL (12.6-16.3); LEFT SHIFT FLG 0 (0-99); LIPEMIA HEMOLYSIS FLAG 80 (0-99); MEAN CELL HEMOGLOBIN 29.2 pg (27.9-34.1); MEAN CELL HEMOGLOBIN CONCENTR. 32.8 g/dL (32.4-36.7); MEAN CELL VOLUME 88.9 fL (81.5-99.8); MEAN PLATELET VOLUME 9.7 fL (8.7-11.7); PLATELET CLUMPS FLAG 0 (0-99); PLATELET COUNT 263 10^3/uL (150-400); RED CELL DISTRIBUTION WIDTH 14.1 % (11.5-15.2)
[2017-03-25] MEDS: THYROID 60 MG TAB PO SCH (07:15)
[2017-03-25] MEDS: ACETAMINOPHEN 325 MG TAB PO PRN (10:32)
[2017-03-25] MEDS: traMADol 50 MG TAB PO PRN ×2 (10:32→17:37)
[2017-03-25] MEDS ORDERED: ALTEPLASE 2 MG VIAL IVP PRN (10:38)
--- NOTE | 2017-03-25 10:41 | PCMIDPN ---
Assessment/Plan: # Immunosuppressed: RA on Remicade # Left septic olecranon bursitis, cultures show Staphylococcus epidermidis and Simulans both susceptible to cefazolin. Majority of erythema left upper extremity is resolved - faint erythema still present lateral forearm, swelling also only lateral forearm. No associated bacteremia, cx 03/22 negative --renal dose cefazolin at 1 g IV Q 8 through 04/05 --PICC line ordered #Confusion, better today, but still can't remember having surgery Care coordinated w Fannie John NP Subjective: a little agitated , but got year 2016 c/o B hip pain Objective: Vital Signs Temp Pulse Resp BP Pulse Ox 36.7 C 76 14 125/66 H 97 03/25/17 08:00 03/25/17 08:00 03/25/17 08:00 03/25/17 08:00 03/25/17 08:00 Microbiology 03/23/17 16:47 Gram Stain - Final Elbow - Aspirate 03/23/17 16:47 Gram Stain - Final Elbow - Eswab 03/23/17 16:47 Gram Stain - Final Elbow - Tissue Laboratory Results 03/25/17 05:15 03/24/17 04:27 03/24/17 03/25/17 03/26/17 05:59 05:59 05:59 Intake Total 1175 850 Output Total 785 750 Balance 390 100 ESR 33 MM/HR (0-30) H 03/23/17 04:57 C-Reactive Protein 134.5 mg/L (<10.0) H 03/22/17 19:54 - Physical Exam General Appearance: alert EENT: No thrush Respiratory: lungs clear, accessory muscle use Neck: supple Cardiac/Chest: regular rate, rhythm Extremities: swelling (limited to L forearm), erythema (mild residual lateral forearm), other (Elbow incision without drainage, stitches intact), No pedal edema Abdomen: non-tender, soft Skin: No rash Neuro/Psych: alert, normal mood/affect, disoriented to person, disoriented to time ICD10 Worksheet Patient Problems: Problems Problem Status Onset Cardiomyopathy Acute Mitral valve regurgitation Acute S/P biventricular cardiac pacemaker procedure Acute
[2017-03-25] MEDS: CARVEDILOL 3.125 MG TAB PO SCH (10:46)
[2017-03-25] MEDS: predniSONE 1 MG TAB PO SCH (10:48)
[2017-03-25] MEDS: lamoTRIgine 100 MG TAB PO SCH (10:50)
[2017-03-25] MEDS: PRESERVISION AREDS2 FORMULA EYE VIT 1 EACH PO SCH (10:52)
[2017-03-25] MEDS: VALSARTAN 40 MG TAB PO SCH (10:52)
[2017-03-25] MEDS: FOLIC ACID 1 MG TAB PO SCH ×2 (10:53→21:22)
[2017-03-25] MEDS: CHOLECALCIFEROL VIT D3 2,000 UNITS TAB/CAP PO SCH ×2 (10:54→21:22)
[2017-03-25] MEDS: SPIRONOLACTONE 25 MG TAB PO SCH (10:54)
[2017-03-25] MEDS: FUROSEMIDE 20 MG TAB PO SCH (10:55)
[2017-03-25] MEDS: MEMANTINE HCL 5 MG TAB PO SCH (10:55)
[2017-03-25] MEDS: BRIMONIDINE 0.15% 5 ML OPHT.BTL EACHEYE SCH ×2 (10:59→21:21)
[2017-03-25] MEDS: ENOXAPARIN 40 MG/0.4 ML SYR SC SCH (11:01)
[2017-03-25] MEDS: DEXTROAMPHETAMINE PO SCH (11:02)
[2017-03-25] MEDS: AMPHETAMINE PO SCH (11:02)
--- NOTE | 2017-03-25 11:44 | HOSPPROG ---
Hospitalist Progress Note Assessment/Plan: Arlyn Lema is an 86 y/o female who presented to the ER with left elbow and arm pain. *Septic arthritis of left olecranon Cefazolin s/p I & D and debridement *RA on chronic steroid use *Hx of CHB/pacer *cardiomyopathy *anemia follow *dementia will need further evaluation son says he is doubtful she takes her medications *renal insufficiency creat 1.1 *DVT prophylaxis LMWH *Plan: continue current treatment/ will need a SNF. Updated her son, Desmond, about her care. Also, spoke with Lisa Cunha ([phone]) who is one of her caregivers/ she agrees she needs more care. Prefers [facility]. Subjective: Arlyn is not c/o pain. Objective: Vital Signs Temp Pulse Resp BP Pulse Ox 36.7 C 81 14 125/66 H 97 03/25/17 08:00 03/25/17 10:46 03/25/17 08:00 03/25/17 10:52 03/25/17 08:00 Microbiology 03/23/17 16:47 Gram Stain - Final Elbow - Aspirate 03/23/17 16:47 Gram Stain - Final Elbow - Eswab 03/23/17 16:47 Gram Stain - Final Elbow - Tissue Laboratory Results 03/25/17 05:15 03/24/17 04:27 03/24/17 03/25/17 03/26/17 05:59 05:59 05:59 Intake Total 1175 850 Output Total 785 750 Balance 390 100 - Physical Exam Constitutional: no apparent distress, appears nourished Eyes: PERRL Ears, Nose, Mouth, Throat: hearing normal Cardiovascular: regular rate and rhythym Respiratory: no respiratory distress Skin: warm, other (left elbow in dressing) Neurologic: other (a & O to herself, place, time. Has no recollection of meeting me. ) Psychiatric: interacting appropriately, poor insight, poor judgement, poor memory ICD10 Worksheet Patient Problems: Problems Problem Status Onset Cardiomyopathy Acute Mitral valve regurgitation Acute S/P biventricular cardiac pacemaker procedure Acute
--- NOTE | 2017-03-25 12:51 | SOAPPROG ---
SOAP Progress Note Assessment/Plan: Assessment: Wound Stable. Plan:Changed to bulky compressive dressing and D/C splint. I will check in AM and if no changes in wound can be D/C from inpatient with outpatient F/U per admitting service. 03/25/17 12:49 Subjective: I dont have any pain Objective: Vital Signs Temp Pulse Resp BP Pulse Ox 36.7 C 86 16 94/61 L 97 03/25/17 08:00 03/25/17 12:00 03/25/17 12:00 03/25/17 12:00 03/25/17 12:00 Microbiology 03/23/17 16:47 Gram Stain - Final Elbow - Aspirate 03/23/17 16:47 Gram Stain - Final Elbow - Eswab 03/23/17 16:47 Gram Stain - Final Elbow - Tissue Laboratory Results 03/25/17 05:15 03/24/17 04:27 03/24/17 03/25/17 03/26/17 05:59 05:59 05:59 Intake Total 1175 850 Output Total 785 750 Balance 390 100 AF VSS Wound CDI, no drainage, no erythema, no swelling. DNVI L UE. ICD10 Worksheet Patient Problems: Problems Problem Status Onset Cardiomyopathy Acute Mitral valve regurgitation Acute S/P biventricular cardiac pacemaker procedure Acute
[2017-03-25] MEDS: ACETAMINOPHEN 500 MG TAB PO SCH ×2 (16:42→21:22)
[2017-03-25] MEDS: ASCORBIC ACID 500 MG TAB PO SCH (16:42)
[2017-03-25] MEDS: risperiDONE 0.25 MG TAB PO SCH (21:21)
[2017-03-25] MEDS: DOCUSATE SODIUM 100 MG CAP PO SCH (21:22)
[2017-03-25] MEDS: PANTOPRAZOLE SODIUM 40 MG TAB PO SCH (21:22)
[2017-03-26] MEDS: IBUPROFEN 200 MG TAB PO PRN (05:55)
[2017-03-26 06:18] LABS: % IMMATURE GRANULYOCYTES 0.7 % (0.0-1.1); ABSOLUTE IMMATURE GRANULOCYTES 0.06 10^3/uL (0.00-0.10); ADD DIFF? NO; ADD MORPH? NO; ADD SCAN? NO; ATYPICAL LYMPHOCYTE FLAG 0 (0-99); FRAGMENT RBC FLAG 0 (0-99); HEMATOCRIT 33.2 % (38.0-47.0); LEFT SHIFT FLG 0 (0-99); LIPEMIA HEMOLYSIS FLAG 80 (0-99); MEAN CELL HEMOGLOBIN 29.5 pg (27.9-34.1); MEAN CELL HEMOGLOBIN CONCENTR. 33.1 g/dL (32.4-36.7); MEAN PLATELET VOLUME 9.7 fL (8.7-11.7); PLATELET CLUMPS FLAG 0 (0-99); PLATELET COUNT 284 10^3/uL (150-400); RED BLOOD CELL COUNT 3.73 10^6/uL (4.18-5.33); RED CELL DISTRIBUTION WIDTH 14.3 % (11.5-15.2)
[2017-03-26 06:36] LABS: ANION GAP 6 mEq/L (8-16); CALCIUM 8.7 mg/dL (8.5-10.4); CARBON DIOXIDE 28 mEq/l (22-31); CHLORIDE 104 mEq/L (97-110); GLOMERULAR FILTRATION RATE 53; GLUCOSE 74 mg/dL (70-100); POTASSIUM 4.3 mEq/L (3.5-5.2); SODIUM 138 mEq/L (134-144)
[2017-03-26] MEDS: VALSARTAN 40 MG TAB PO SCH (08:32)
[2017-03-26] MEDS: PRESERVISION AREDS2 FORMULA EYE VIT 1 EACH PO SCH (08:32)
[2017-03-26] MEDS: CARVEDILOL 3.125 MG TAB PO SCH (08:32)
[2017-03-26] MEDS: ACETAMINOPHEN 500 MG TAB PO SCH ×3 (08:32→20:41)
[2017-03-26] MEDS: FUROSEMIDE 20 MG TAB PO SCH (08:32)
[2017-03-26] MEDS: predniSONE 1 MG TAB PO SCH (08:32)
[2017-03-26] MEDS: lamoTRIgine 100 MG TAB PO SCH (08:33)
[2017-03-26] MEDS: FOLIC ACID 1 MG TAB PO SCH ×2 (08:33→20:41)
[2017-03-26] MEDS: MEMANTINE HCL 5 MG TAB PO SCH (08:33)
[2017-03-26] MEDS: THYROID 60 MG TAB PO SCH (08:33)
[2017-03-26] MEDS: SPIRONOLACTONE 25 MG TAB PO SCH (08:33)
[2017-03-26] MEDS: ENOXAPARIN 40 MG/0.4 ML SYR SC SCH (08:33)
[2017-03-26] MEDS: CHOLECALCIFEROL VIT D3 2,000 UNITS TAB/CAP PO SCH ×2 (08:33→20:41)
[2017-03-26] MEDS: DEXTROAMPHETAMINE PO SCH (08:34)
[2017-03-26] MEDS: BRIMONIDINE 0.15% 5 ML OPHT.BTL EACHEYE SCH ×2 (08:34→21:15)
[2017-03-26] MEDS: ESTROGENS,CONJUGATED 0.625 MG TAB PO SCH (08:34)
[2017-03-26] MEDS: AMPHETAMINE PO SCH (08:34)
--- NOTE | 2017-03-26 09:18 | HOSPPROG ---
Hospitalist Progress Note Assessment/Plan: Arlyn Lema is an 86 y/o female who presented to the ER with left elbow and arm pain. 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 She is much clearer today, but lives alone. Her caregiver,Lisa Cunha ([phone]) has been involved. Hopefully, can be dc to or today or Monday. Subjective: Arlyn is feeling well today. Objective: Vital Signs Temp Pulse Resp BP Pulse Ox 36.4 C 81 116 H 127/63 H 94 03/26/17 08:00 03/26/17 08:32 03/26/17 08:00 03/26/17 08:32 03/26/17 08:00 Microbiology 03/23/17 16:47 Gram Stain - Final Elbow - Tissue 03/23/17 16:47 Gram Stain - Final Elbow - Eswab 03/23/17 16:47 Gram Stain - Final Elbow - Aspirate Laboratory Results 03/26/17 05:45 03/26/17 05:45 03/25/17 03/26/17 03/27/17 05:59 05:59 05:59 Intake Total 850 968.5 Output Total 750 2300 Balance 100 -1331.5 - Physical Exam Constitutional: no apparent distress, appears nourished, not in pain Eyes: anicteric sclera Ears, Nose, Mouth, Throat: hearing normal Cardiovascular: regular rate and rhythym Respiratory: no respiratory distress Gastrointestinal: normoactive bowel sounds Skin: warm, other (left elbow no longer boggy, stitches in place/ bending it without difficulty) Neurologic: AAOx3 Psychiatric: interacting appropriately, not anxious, not encephalopathic, thought process linear ICD10 Worksheet Patient Problems: Problems Problem Status Onset Cardiomyopathy Acute Mitral valve regurgitation Acute S/P biventricular cardiac pacemaker procedure Acute
--- NOTE | 2017-03-26 10:27 | SOAPPROG ---
SOAP Progress Note Assessment/Plan: Assessment: Wound Stable. Plan:Changed to warehouse shipping receiving clerk compressive dressing. Adequate healing to D/C with F/U as written in D/C summary. 03/25/17 12:49 03/26/17 10:25 Subjective: Im having no pain, and am using my left hand Objective: Vital Signs Temp Pulse Resp BP Pulse Ox 36.4 C 81 116 H 127/63 H 94 03/26/17 08:00 03/26/17 08:32 03/26/17 08:00 03/26/17 08:32 03/26/17 08:00 Microbiology 03/23/17 16:47 Gram Stain - Final Elbow - Tissue 03/23/17 16:47 Gram Stain - Final Elbow - Eswab 03/23/17 16:47 Gram Stain - Final Elbow - Aspirate Laboratory Results 03/26/17 05:45 03/26/17 05:45 03/25/17 03/26/17 03/27/17 05:59 05:59 05:59 Intake Total 850 968.5 Output Total 750 2300 Balance 100 -1331.5 Wound is CDI, No swelling, no erythema. ICD10 Worksheet Patient Problems: Problems Problem Status Onset Cardiomyopathy Acute Mitral valve regurgitation Acute S/P biventricular cardiac pacemaker procedure Acute
--- NOTE | 2017-03-26 12:30 | PDIAF ---
- Diagnosis Diagnosis: Left septic olecranon bursitis, Staphylococcus epidermidis Code Status: Full Code - Medication Management Discharge Medications: Medications to Continue on Transfer Ascorbic Acid [Vitamin C 500 mg (*)] 1,000 mg PO DAILY18 04/10/13 [Last Taken ] Brimonidine 0.15% [Alphagan P 0.15%] 1 drops EACHEYE BID 04/10/13 [Last Taken 09:00] Estrogens,Conjugated [Premarin 0.625 MG (*)] 0.625 mg PO Q2D@04/10/13 [Last Taken 05/09/14] Etanercept [Enbrel] 50 mg SQ [place]@04/10/13 [Last Taken 03/19/17] Folic Acid [Folic Acid 1 MG (*)] 1 mg PO BID 04/10/13 [Last Taken 03/22/17] Methotrexate Sodium [Methotrexate] 15 mg PO SA@04/10/13 [Last Taken 03/18/17] Thyroid [[place] Thyroid 60 MG (*)] 60 mg PO DAILYAC 04/10/13 [Last Taken ] predniSONE [Prednisone] 3 mg PO DAILY@04/10/13 [Last Taken 03/22/17] Acetaminophen [Tylenol ES 500 mg (*)] 1,000 mg PO DAILY PRN 05/09/14 [Last Taken 05/08/14] Carvedilol [Coreg (*)] 3.125 mg PO DAILY@05/09/14 [Last Taken 03/22/17] Dextroamphetamine/Amphetamine [Adderall Xr 5 mg Capsule] 5 mg PO DAILY 05/09/14 [Last Taken 03/22/17] Docusate Sodium [Colace 100 MG (*)] 100 mg PO HS 05/09/14 [Last Taken 03/20/17] Herbals/Supplements -Info Only 1 ea PO DAILY 05/09/14 [Last Taken Unknown] Omeprazole [Prilosec] 40 mg PO HS 05/09/14 [Last Taken 03/20/17] Sorbitol/Constantin St#1/Mal AC/Ca pH [Numoisyn Lozenge] 0.3 gm MM TID PRN 05/09/14 [ Last Taken Unknown] Spironolactone [Aldactone 25 MG (*)] 12.5 mg PO DAILY 05/09/14 [Last Taken 03/22] Vit A/Vit C/Vit E/Zinc/Copper [Preservision Areds Softgel] 1 each PO DAILY 05/09 [Last Taken 03/22/17] traMADol [Ultram 50 mg (*)] 50 - 100 mg PO TID PRN 05/09/14 [Last Taken 05/08/14 ] Cholecalciferol (Vitamin D3) [Vitamin D3] 2,000 unit PO BID 03/22/17 [Last Taken 03/22/17] Furosemide [Lasix 20 MG (*)] 20 mg PO DAILY 03/22/17 [Last Taken 03/22/17] Ibuprofen [Motrin (*)] 400 mg PO Q6HRS PRN 03/22/17 [Last Taken Unknown] Meloxicam [Mobic 7.5 mg] 7.5 mg PO DAILY 03/22/17 [Last Taken Unknown] Memantine HCl 10 mg PO DAILY 03/22/17 [Last Taken 03/22/17] Valsartan [Diovan (*)] 40 mg PO DAILY 03/22/17 [Last Taken 03/22/17] lamoTRIgine [LamICTAL] 50 mg PO DAILY 03/22/17 [Last Taken 03/22/17] risperiDONE [Risperdal 0.25mg (*)] 0.25 mg PO HS 03/22/17 [Last Taken 03/20/17] Skilled Nursing Antibiotics: cefazolin 1gm IV [id number] Trust Manager Antibiotic Stop Date: 04/05/17 Discharge Medications: Refer to the Discharge Home Medication list for PRN reason. PICC Care - Routine: Yes - Labs/Radiology CBC Date: 04/03/17 CMP Date: 04/03/17 CRP Date: 04/03/17 Call or Fax Lab and Imaging Results to: serge [phone] - Follow Up Care Current Providers and Referrals: Wan Brian MD [Medical Doctor] - (Follow-up 10-14 days post- operatively. Call the office to schedule this appointment.) Alessia Bautista MD [Primary Care Provider] - As per Instructions Carole Camacho MD [Medical Doctor] - follow up in 10 days
--- NOTE | 2017-03-26 12:33 | PCMIDPN ---
Assessment/Plan: # Immunosuppressed: RA on Remicade # Left septic olecranon bursitis, cultures show Staphylococcus epidermidis and Simulans both susceptible to cefazolin. --renal dose cefazolin at 1 g IV Q 8 through 04/05, inter agency completed from ID standpoint --check labs tomorrow Subjective: No complaints today. Generally cheerful Objective: Vital Signs Temp Pulse Resp BP Pulse Ox 36.6 C 85 16 78/45 L 91 L 03/26/17 12:00 03/26/17 12:00 03/26/17 12:00 03/26/17 12:00 03/26/17 12:00 Microbiology 03/23/17 16:47 Gram Stain - Final Elbow - Tissue 03/23/17 16:47 Gram Stain - Final Elbow - Eswab 03/23/17 16:47 Gram Stain - Final Elbow - Aspirate Laboratory Results 03/26/17 05:45 03/26/17 05:45 03/25/17 03/26/17 03/27/17 05:59 05:59 05:59 Intake Total 850 968.5 Output Total 750 2300 Balance 100 -1331.5 ESR 33 MM/HR (0-30) H 03/23/17 04:57 C-Reactive Protein 134.5 mg/L (<10.0) H 03/22/17 19:54 - Physical Exam General Appearance: alert, no apparent distress Respiratory: No accessory muscle use Neck: supple Extremities: other (Left upper extremity with minimal residual erythema lateral forearm, otherwise swelling and erythema have resolved, stitches intact without drainage over the elbow) Neuro/Psych: alert, normal mood/affect, confused ICD10 Worksheet Patient Problems: Problems Problem Status Onset Cardiomyopathy Acute Mitral valve regurgitation Acute S/P biventricular cardiac pacemaker procedure Acute
[2017-03-26] MEDS ORDERED: NS 250 ML IV ONE (12:34)
[2017-03-26] MEDS: ASCORBIC ACID 500 MG TAB PO SCH (17:29)
[2017-03-26] MEDS: PANTOPRAZOLE SODIUM 40 MG TAB PO SCH (20:41)
[2017-03-26] MEDS: risperiDONE 0.25 MG TAB PO SCH (20:41)
[2017-03-26] MEDS: DOCUSATE SODIUM 100 MG CAP PO SCH (20:41)
[2017-03-27 06:24] LABS: % IMMATURE GRANULYOCYTES 0.8 % (0.0-1.1); ABSOLUTE IMMATURE GRANULOCYTES 0.06 10^3/uL (0.00-0.10); ADD DIFF? NO; ADD MORPH? NO; ADD SCAN? NO; ATYPICAL LYMPHOCYTE FLAG 10 (0-99); FRAGMENT RBC FLAG 0 (0-99); HEMATOCRIT 33.7 % (38.0-47.0); HEMOGLOBIN 11.1 g/dL (12.6-16.3); LEFT SHIFT FLG 0 (0-99); LIPEMIA HEMOLYSIS FLAG 80 (0-99); MEAN CELL HEMOGLOBIN 29.1 pg (27.9-34.1); MEAN CELL HEMOGLOBIN CONCENTR. 32.9 g/dL (32.4-36.7); MEAN CELL VOLUME 88.5 fL (81.5-99.8); MEAN PLATELET VOLUME 9.4 fL (8.7-11.7); PLATELET CLUMPS FLAG 10 (0-99); PLATELET COUNT 277 10^3/uL (150-400); RED BLOOD CELL COUNT 3.81 10^6/uL (4.18-5.33); RED CELL DISTRIBUTION WIDTH 14.2 % (11.5-15.2)
[2017-03-27 06:50] LABS: ALANINE AMINOTRANSFERASE 18 IU/L (9-52); ALKALINE PHOSPHATASE 54 IU/L (38-126); ANION GAP 7 mEq/L (8-16); ASPARTATE AMINOTRANSFERASE 19 IU/L (14-46); BILIRUBIN,TOTAL 0.3 mg/dL (0.1-1.4); C-REACTIVE PROTEIN 25.2 mg/L (<10.0); CALCIUM 8.8 mg/dL (8.5-10.4); CARBON DIOXIDE 28 mEq/l (22-31); CHLORIDE 106 mEq/L (97-110); CREATININE 0.9 mg/dL (0.6-1.0); GLOMERULAR FILTRATION RATE 60; GLUCOSE 80 mg/dL (70-100); POTASSIUM 4.2 mEq/L (3.5-5.2); SODIUM 141 mEq/L (134-144); TOTAL PROTEIN 6.2 g/dL (6.3-8.2)
[2017-03-27] MEDS: PRESERVISION AREDS2 FORMULA EYE VIT 1 EACH PO SCH (08:03)
[2017-03-27] MEDS: CARVEDILOL 3.125 MG TAB PO SCH (08:03)
[2017-03-27] MEDS: FOLIC ACID 1 MG TAB PO SCH ×2 (08:03→21:42)
[2017-03-27] MEDS: predniSONE 1 MG TAB PO SCH (08:04)
[2017-03-27] MEDS: lamoTRIgine 100 MG TAB PO SCH (08:04)
[2017-03-27] MEDS: THYROID 60 MG TAB PO SCH (08:04)
[2017-03-27] MEDS: MEMANTINE HCL 5 MG TAB PO SCH (08:04)
[2017-03-27] MEDS: VALSARTAN 40 MG TAB PO SCH (08:04)
[2017-03-27] MEDS: SPIRONOLACTONE 25 MG TAB PO SCH (08:05)
[2017-03-27] MEDS: FUROSEMIDE 20 MG TAB PO SCH (08:05)
[2017-03-27] MEDS: CHOLECALCIFEROL VIT D3 2,000 UNITS TAB/CAP PO SCH ×2 (08:05→21:42)
[2017-03-27] MEDS: ACETAMINOPHEN 500 MG TAB PO SCH ×3 (08:06→21:42)
[2017-03-27] MEDS: BRIMONIDINE 0.15% 5 ML OPHT.BTL EACHEYE SCH ×2 (08:08→21:42)
[2017-03-27] MEDS: ENOXAPARIN 40 MG/0.4 ML SYR SC SCH (08:14)
[2017-03-27] MEDS: AMPHETAMINE PO SCH (09:23)
[2017-03-27] MEDS: DEXTROAMPHETAMINE PO SCH (09:23)
--- NOTE | 2017-03-27 11:51 | PCMIDPN ---
Assessment/Plan: Assessment: L olecranon bursitis -- subacute. Covering for both staph simulans and staph epidermidis. On 1st generation cephalosporin now as both of these isolates are sensitive. Plan to continue IV cefazolin for 2 weeks from OR debridement. Plan: 1) Continue IV cefazolin. Duration of 2 weeks from surgery. 2) stable for discharge to rehab facility. 03/27/17 18:04 03/27/17 18:05 Subjective: Patient is resting comfortably in her hospital room. No acute events. States that her left elbow remains painful but in a different way. No fevers or chills. Objective: Cefazolin # 2 (# 4) Vital Signs Temp Pulse Resp BP Pulse Ox 36.9 C 80 16 110/75 95 03/27/17 08:00 03/27/17 08:00 03/27/17 08:00 03/27/17 08:00 03/27/17 08:00 Microbiology 03/23/17 16:47 Gram Stain - Final Elbow - Eswab 03/23/17 16:47 Gram Stain - Final Elbow - Tissue 03/23/17 16:47 Gram Stain - Final Elbow - Aspirate Laboratory Results 03/27/17 06:05 03/27/17 06:05 03/26/17 03/27/17 03/28/17 05:59 05:59 05:59 Intake Total 968.5 325 Output Total 2300 900 Balance -1331.5 -575 ESR 33 MM/HR (0-30) H 03/23/17 04:57 C-Reactive Protein 25.2 mg/L (<10.0) H 03/27/17 06:05 - Physical Exam General Appearance: WD/WN, alert, no apparent distress, non-toxic Respiratory: lungs clear, normal breath sounds, No respiratory distress Cardiac/Chest: regular rate, rhythm, No tachycardia Extremities: non-tender, No normal inspection Skin: normal color, warm/dry, No rash Neuro/Psych: alert, normal mood/affect, oriented x 3 ICD10 Worksheet Patient Problems: Problems Problem Status Onset Cardiomyopathy Acute Mitral valve regurgitation Acute S/P biventricular cardiac pacemaker procedure Acute
--- NOTE | 2017-03-27 13:02 | SOAPPROG ---
SOAP Progress Note Assessment/Plan: Assessment: POD 4 s/p I&D for L elbow septic olecranon bursitis (+ staph), now on IV cefazolin 1g Q8H. No sign of septic arthritis. Plan: Doing well post-op with improving CRP and nml WBC. -Cont cefazolin dosing per ID. -Keep wound covered with RICHAR/dsgs. -Elbow ROM and HEP, modalities prn. -F/u w/ me in 7-10 days for suture removal. Please call with any ?s. 03/27/17 12:58 Subjective: Denies any pain or other c/o. Objective: Vital Signs Temp Pulse Resp BP Pulse Ox 36.9 C 80 16 110/75 95 03/27/17 08:00 03/27/17 08:00 03/27/17 08:00 03/27/17 08:00 03/27/17 08:00 Microbiology 03/23/17 16:47 Gram Stain - Final Elbow - Eswab 03/23/17 16:47 Gram Stain - Final Elbow - Tissue 03/23/17 16:47 Gram Stain - Final Elbow - Aspirate Laboratory Results 03/27/17 06:05 03/27/17 06:05 03/26/17 03/27/17 03/28/17 05:59 05:59 05:59 Intake Total 968.5 325 Output Total 2300 900 Balance -1331.5 -575 No E/E/E/C. Small palp FC at bursa. ROM 5-130, P/S 80+. Comp's soft. DNVI BUEs. ICD10 Worksheet Patient Problems: Problems Problem Status Onset Cardiomyopathy Acute Mitral valve regurgitation Acute S/P biventricular cardiac pacemaker procedure Acute
--- NOTE | 2017-03-27 14:02 | PDIAF ---
- Diagnosis Diagnosis: Left septic olecranon bursitis, Staphylococcus epidermidis Code Status: Full Code - Medication Management Discharge Medications: Medications to Continue on Transfer Ascorbic Acid [Vitamin C 500 mg (*)] 1,000 mg PO DAILY18 04/10/13 [Last Taken ] Brimonidine 0.15% [Alphagan P 0.15%] 1 drops EACHEYE BID 04/10/13 [Last Taken 09:00] Estrogens,Conjugated [Premarin 0.625 MG (*)] 0.625 mg PO Q2D@04/10/13 [Last Taken 05/09/14] Folic Acid [Folic Acid 1 MG (*)] 1 mg PO BID 04/10/13 [Last Taken 03/22/17] Thyroid [[place] Thyroid 60 MG (*)] 60 mg PO DAILYAC 04/10/13 [Last Taken ] predniSONE [Prednisone] 3 mg PO DAILY@04/10/13 [Last Taken 03/22/17] Carvedilol [Coreg (*)] 3.125 mg PO DAILY@05/09/14 [Last Taken 03/22/17] Dextroamphetamine/Amphetamine [Adderall Xr 5 mg Capsule] 5 mg PO DAILY 05/09/14 [Last Taken 03/22/17] Docusate Sodium [Colace 100 MG (*)] 100 mg PO HS 05/09/14 [Last Taken 03/20/17] Omeprazole [Prilosec] 40 mg PO HS 05/09/14 [Last Taken 03/20/17] Sorbitol/Constantin St#1/Mal AC/Ca pH [Numoisyn Lozenge] 0.3 gm MM TID PRN 05/09/14 [ Last Taken Unknown] Spironolactone [Aldactone 25 MG (*)] 12.5 mg PO DAILY 05/09/14 [Last Taken 03/22] Vit A/Vit C/Vit E/Zinc/Copper [Preservision Areds Softgel] 1 each PO DAILY 05/09 [Last Taken 03/22/17] traMADol [Ultram 50 mg (*)] 50 - 100 mg PO TID PRN 05/09/14 [Last Taken 05/08/14 ] Cholecalciferol (Vitamin D3) [Vitamin D3] 2,000 unit PO BID 03/22/17 [Last Taken 03/22/17] Furosemide [Lasix 20 MG (*)] 20 mg PO DAILY 03/22/17 [Last Taken 03/22/17] Ibuprofen [Motrin (*)] 400 mg PO Q6HRS PRN 03/22/17 [Last Taken Unknown] Meloxicam [Mobic 7.5 mg] 7.5 mg PO DAILY 03/22/17 [Last Taken Unknown] Memantine HCl 10 mg PO DAILY 03/22/17 [Last Taken 03/22/17] Valsartan [Diovan (*)] 40 mg PO DAILY 03/22/17 [Last Taken 03/22/17] lamoTRIgine [LaMICtal] 50 mg PO DAILY 03/22/17 [Last Taken 03/22/17] risperiDONE [Risperdal 0.25mg (*)] 0.25 mg PO HS 03/22/17 [Last Taken 03/20/17] Acetaminophen [Tylenol ES 500 mg (*)] 1,000 mg PO TID tab 03/27/17 [Last Taken Unknown] Alteplase [Cathflo Activase 2 mg (*)] 2 mg IVP PRN PRN #0 vial 03/27/17 [Last Taken Unknown] ceFAZolin 1 GM/DEXTROSE [Ancef 1 gm (Premix)] 1 gm IV Q8HRS #0 bag 03/27/17 [ Last Taken Unknown] Senior Living Antibiotics: cefazolin 1gm IV [id number] Foreign Service Officer Antibiotic Stop Date: 04/05/17 Discharge Medications: Refer to the Discharge Home Medication list for PRN reason. PICC Care - Routine: Yes - Orders Services needed: Registered Nurse, Physical Therapy, Occupational Therapy - Labs/Radiology CBC Date: 04/03/17 CMP Date: 04/03/17 CRP Date: 04/03/17 Call or Fax Lab and Imaging Results to: serge [phone] - Follow Up Care Current Providers and Referrals: Wan Brian MD [Medical Doctor] - (Follow-up 10-14 days post- operatively. Call the office to schedule this appointment.) Alessia Bautista MD [Primary Care Provider] - As per Instructions Carole Camacho MD [Medical Doctor] - follow up in 10 days
--- NOTE | 2017-03-27 15:04 | HOSPPROG ---
Hospitalist Progress Note Assessment/Plan: Arlyn Lema is an 86 y/o female who presented to the ER with left elbow and arm pain. This is my first encounter. Chart reviewed. D/W Dr Lema and CM. *Septic arthritis of left olecranon Cefazolin, cont s/p I & D and debridement pain has almost completely resolved *RA on chronic steroid use *Hx of CHB/pacer *cardiomyopathy *anemia follow *dementia has some short term memory/[facility] *renal insufficiency creat 1.0 *DVT prophylaxis LMWH *Plan: Recommending a SNF/on abx x 2 weeks. lives alone. Her caregiver,Lisa Cunha ([phone]) has been involved. Hopefully, can be dc to or [facility] today. Subjective: Up in chair. C/O elbow pain. Doing well. Eager to leave the hospital. Objective: Vital Signs Temp Pulse Resp BP Pulse Ox 36.9 C 80 16 110/75 95 03/27/17 08:00 03/27/17 10:55 03/27/17 08:00 03/27/17 08:00 03/27/17 10:55 Microbiology 03/23/17 16:47 Gram Stain - Final Elbow - Eswab 03/23/17 16:47 Gram Stain - Final Elbow - Tissue 03/23/17 16:47 Gram Stain - Final Elbow - Aspirate Laboratory Results 03/27/17 06:05 03/27/17 06:05 03/26/17 03/27/17 03/28/17 05:59 05:59 05:59 Intake Total 968.5 325 Output Total 2300 900 Balance -1331.5 -575 - Physical Exam Constitutional: no apparent distress, appears nourished, not in pain Eyes: PERRL, anicteric sclera, EOMI Ears, Nose, Mouth, Throat: moist mucous membranes, hearing normal, ears appear normal Cardiovascular: No JVD, No tachycardia, No edema Respiratory: no respiratory distress, no rales or rhonchi, reduced air movement Gastrointestinal: No tenderness, No ascites, No guarding Skin: warm, no rashes or abrasions, fluctuance Musculoskeletal: joint tenderness, pain with ROM, generalized weakness Psychiatric: interacting appropriately, not anxious, not encephalopathic, poor memory ICD10 Worksheet Patient Problems: Problems Problem Status Onset Cardiomyopathy Acute S/P biventricular cardiac pacemaker procedure Acute Mitral valve regurgitation Acute
[2017-03-27] MEDS: ASCORBIC ACID 500 MG TAB PO SCH (18:18)
[2017-03-27] MEDS: DOCUSATE SODIUM 100 MG CAP PO SCH (21:42)
[2017-03-27] MEDS: PANTOPRAZOLE SODIUM 40 MG TAB PO SCH (21:42)
[2017-03-27] MEDS: risperiDONE 0.25 MG TAB PO SCH (21:42)
[2017-03-28 07:33] VITALS: BP 141/71; PULSE 84; RESP 19; TEMP 98.3; O2SAT 90
[2017-03-28] MEDS: SPIRONOLACTONE 25 MG TAB PO SCH (08:00)
[2017-03-28] MEDS: FOLIC ACID 1 MG TAB PO SCH (08:00)
[2017-03-28] MEDS: FUROSEMIDE 20 MG TAB PO SCH (08:00)
[2017-03-28] MEDS: CARVEDILOL 3.125 MG TAB PO SCH (08:00)
[2017-03-28] MEDS: CHOLECALCIFEROL VIT D3 2,000 UNITS TAB/CAP PO SCH (08:00)
[2017-03-28] MEDS: MEMANTINE HCL 5 MG TAB PO SCH (08:01)
[2017-03-28] MEDS: predniSONE 1 MG TAB PO SCH (08:01)
[2017-03-28] MEDS: lamoTRIgine 100 MG TAB PO SCH (08:01)
[2017-03-28] MEDS: THYROID 60 MG TAB PO SCH (08:02)
[2017-03-28] MEDS: ESTROGENS,CONJUGATED 0.625 MG TAB PO SCH (08:02)
[2017-03-28] MEDS: PRESERVISION AREDS2 FORMULA EYE VIT 1 EACH PO SCH (08:02)
[2017-03-28] MEDS: VALSARTAN 40 MG TAB PO SCH (08:02)
[2017-03-28] MEDS: ACETAMINOPHEN 500 MG TAB PO SCH ×2 (08:02→16:01)
[2017-03-28] MEDS: ENOXAPARIN 40 MG/0.4 ML SYR SC SCH (08:03)
[2017-03-28] MEDS: BRIMONIDINE 0.15% 5 ML OPHT.BTL EACHEYE SCH (08:04)
--- NOTE | 2017-03-28 08:42 | PDIAF ---
- Diagnosis Diagnosis: Left septic olecranon bursitis, Staphylococcus epidermidis Code Status: Full Code - Medication Management Discharge Medications: Medications to Continue on Transfer Ascorbic Acid [Vitamin C 500 mg (*)] 1,000 mg PO DAILY18 04/10/13 [Last Taken ] Brimonidine 0.15% [Alphagan P 0.15%] 1 drops EACHEYE BID 04/10/13 [Last Taken 09:00] Estrogens,Conjugated [Premarin 0.625 MG (*)] 0.625 mg PO Q2D@04/10/13 [Last Taken 05/09/14] Folic Acid [Folic Acid 1 MG (*)] 1 mg PO BID 04/10/13 [Last Taken 03/22/17] Thyroid [[place] Thyroid 60 MG (*)] 60 mg PO DAILYAC 04/10/13 [Last Taken ] predniSONE [Prednisone] 3 mg PO DAILY@04/10/13 [Last Taken 03/22/17] Carvedilol [Coreg (*)] 3.125 mg PO DAILY@05/09/14 [Last Taken 03/22/17] Dextroamphetamine/Amphetamine [Adderall Xr 5 mg Capsule] 5 mg PO DAILY 05/09/14 [Last Taken 03/22/17] Docusate Sodium [Colace 100 MG (*)] 100 mg PO HS 05/09/14 [Last Taken 03/20/17] Omeprazole [Prilosec] 40 mg PO HS 05/09/14 [Last Taken 03/20/17] Sorbitol/Constantin St#1/Mal AC/Ca pH [Numoisyn Lozenge] 0.3 gm MM TID PRN 05/09/14 [ Last Taken Unknown] Spironolactone [Aldactone 25 MG (*)] 12.5 mg PO DAILY 05/09/14 [Last Taken 03/22] Vit A/Vit C/Vit E/Zinc/Copper [Preservision Areds Softgel] 1 each PO DAILY 05/09 [Last Taken 03/22/17] traMADol [Ultram 50 mg (*)] 50 - 100 mg PO TID PRN 05/09/14 [Last Taken 05/08/14 ] Cholecalciferol (Vitamin D3) [Vitamin D3] 2,000 unit PO BID 03/22/17 [Last Taken 03/22/17] Furosemide [Lasix 20 MG (*)] 20 mg PO DAILY 03/22/17 [Last Taken 03/22/17] Ibuprofen [Motrin (*)] 400 mg PO Q6HRS PRN 03/22/17 [Last Taken Unknown] Meloxicam [Mobic 7.5 mg] 7.5 mg PO DAILY 03/22/17 [Last Taken Unknown] Memantine HCl 10 mg PO DAILY 03/22/17 [Last Taken 03/22/17] Valsartan [Diovan (*)] 40 mg PO DAILY 03/22/17 [Last Taken 03/22/17] lamoTRIgine [LaMICtal] 50 mg PO DAILY 03/22/17 [Last Taken 03/22/17] risperiDONE [Risperdal 0.25mg (*)] 0.25 mg PO HS 03/22/17 [Last Taken 03/20/17] Acetaminophen [Tylenol ES 500 mg (*)] 1,000 mg PO TID tab 03/27/17 [Last Taken Unknown] Alteplase [Cathflo Activase 2 mg (*)] 2 mg IVP PRN PRN #0 vial 03/27/17 [Last Taken Unknown] ceFAZolin 1 GM/DEXTROSE [Ancef 1 gm (Premix)] 1 gm IV Q8HRS #0 bag 03/27/17 [ Last Taken Unknown] Jail Antibiotics: cefazolin 1gm IV [id number] Structural 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 PICC Care - Routine: Yes - Orders Services needed: Registered Nurse, Physical Therapy, Occupational Therapy - Labs/Radiology CBC Date: 04/03/17 CMP Date: 04/03/17 CRP Date: 04/03/17 Call or Fax Lab and Imaging Results to: serge [phone] - Follow Up Care Current Providers and Referrals: Wan Brian MD [Medical Doctor] - (Follow-up 10-14 days post- operatively. Call the office to schedule this appointment.) Alessia Bautista MD [Primary Care Provider] - As per Instructions Carole Camacho MD [Medical Doctor] - follow up in 10 days
[2017-03-28] MEDS: AMPHETAMINE PO SCH (09:31)
[2017-03-28] MEDS: DEXTROAMPHETAMINE PO SCH (09:31)
--- NOTE | 2017-03-28 12:35 | GDS ---
[f rep st] DISCHARGE SUMMARY DISCHARGE DIAGNOSES: 1. Septic arthritis of the left olecranon. 2. Rheumatoid arthritis. 3. History of cardiomyopathy. 4. Anemia. 5. Mild dementia. 6. Renal insufficiency. CONSULTATIONS: 1. Infectious Disease. 2. Orthopedics. PHYSICAL EXAM: GENERAL: The patient is alert. VITAL SIGNS: Afebrile at 36.8, pulse is 84, respir atory rate is 19, blood pressure is 141/71. She is saturating 90% on room air. I have seen and jeannie luated the patient on the day of discharge. HOSPITAL COURSE: The patient is an 86-year-old female who presented to the emergency room with comp laints of left elbow pain. She was evaluated and diagnosed with: 1. Septic arthritis of the left olecranon. During this hospitalization, she received IV antibiotic s as well as PICC line placement. She also had an I and D of the left elbow. Orthopedics was consu lted. The patient will continue to have outpatient IV antibiotics administered. 2. History of rheumatoid arthritis. She is on chronic suppressive medications making her immune co mpromise. 3. History of cardiomyopathy. This is stable. 4. Anemia. This is stable in the setting of acute infectious process. No intervention warranted. 5. Mild dementia. The patient is at her baseline. DISPOSITION: The patient will be discharged to [facility] for further rehabilitation and strengthen ing. There are no pending studies. DISCHARGE MEDICATIONS: Please refer to the EMR form. The patient will continue on her IV cefazolin as instructed. She should also reinitiate her Enbrel as well as her methotrexate once her infectio n has resolved. FOLLOWUP: Follow up will be with Dr. Brian as well as her primary care physician, Dr. Alessia torres, and Dr. Carole Camacho of Infectious Disease. I spent greater than 35 minutes in the care, coordination, and management of this patient's disposit ion. /[id number]/MODL
== END 2017-03-28 16:33 | DRG 501 ==
LOC: F3E 13:19
PROVIDERS: ADMIT Hospitalist; ATTEND Hospitalist
PROC: 0MB40ZZ Excision of Left Elbow Bursa and Ligament, Open Approach (ICD-10-PCS; principal; 2017-03-23 14:30)
PROC: 02HV33Z Insertion of Infusion Device into Superior Vena Cava, Percutaneous Approach (ICD-10-PCS; 2017-03-25)
DX: M70.22 Olecranon bursitis, left elbow (principal); L03.114 Cellulitis of left upper limb; B95.61 Methicillin susceptible Staphylococcus aureus infection as the cause of diseases classified elsewhere; M06.9 Rheumatoid arthritis, unspecified; D64.9 Anemia, unspecified; F03.90 Unspecified dementia, unspecified severity, without behavioral disturbance, psychotic disturbance, mood disturbance, and anxiety; N28.9 Disorder of kidney and ureter, unspecified; E03.9 Hypothyroidism, unspecified; I10 Essential (primary) hypertension; K21.9 Gastro-esophageal reflux disease without esophagitis; H40.9 Unspecified glaucoma; Z79.52 Long term (current) use of systemic steroids; Z95.0 Presence of cardiac pacemaker; Z88.0 Allergy status to penicillin
CPT/HCPCS: 96374; 97116-GP; 97161-GP; 97165-GO; 97530-GO; 97535-GO; C1751; G8978-GP-CJ; G8979-GP-CI; G8987-GO-CI; G8988-GO-CI; J0690; J1100; J1650; J2405; J2704; J3010; J3370

== ENCOUNTER → 2018-04-30 | Outpatient (CLI) | payer OTHER, BC | LOC: FIMAGING 10:55 | PROVIDERS: ATTEND Internal Medicine | DX: G31.9 Degenerative disease of nervous system, unspecified (principal) ==

== ENCOUNTER → 2018-06-04 | Outpatient (CLI) | payer OTHER, BC ==
[~2018-06-04] MED LIST: IOPAMIDOL (ISOVUE-300) 100 ML BTL ONE
== END ==
LOC: FIMAGING 11:10
PROVIDERS: ATTEND Psychiatry & Neurology Neurology
DX: R41.3 Other amnesia (principal)
CPT/HCPCS: 70460; Q9967

== ENCOUNTER → 2018-06-15 | Outpatient (CLI) | payer OTHER, BC ==
--- NOTE | 2018-06-22 14:10 | CPEEG ---
[f rep st] ELECTROENCEPHALOGRAM DATE OF STUDY: 06/15/2018 INTERPRETATION: Essentially normal EEG during wakefulness and sleep. There were no potentially epil eptogenic abnormalities present during the recording. REPORT: This EEG contains 9-10 Hz alpha to the posterior head regions. There was no abnormal activa tion at rest, during photic stimulation hyperventilation. The patient intermittently became drowsy a nd fell asleep during the study. During drowsiness, there were bitemporal theta and minimal delta tr ansients. This can be a normal drowsy pattern in this age group. There was no definite abnormal act ivation during drowsiness, sleep, or during times of arousal. /[id number]/MODL
== END ==
LOC: FCPNEURO 09:58
PROVIDERS: ATTEND Psychiatry & Neurology Neurology
DX: R41.3 Other amnesia (principal)

== ENCOUNTER → 2018-11-02 | Outpatient (CLI) | payer OTHER, BC | LOC: FIMAGING 11:10 | PROVIDERS: ATTEND Internal Medicine | DX: M85.89 Other specified disorders of bone density and structure, multiple sites (principal); Z78.0 Asymptomatic menopausal state ==

== ENCOUNTER 2018-12-27 09:29 | Emergency (ER) | payer OTHER, BC ==
--- NOTE | 2018-12-27 09:34 | EDPHY ---
HPI/HX/ROS/PE/MDM Narrative: CHIEF COMPLAINT: Pain, weakness, failure to thrive HISTORY OF PRESENT ILLNESS: The patient is an 88 y/o female with a history of rheumatoid arthritis arriving via EMS for evaluation of weakness, pain, difficulty getting around her house, and suspected failure to thrive for at least the last week. She lives alone and has a caregiver come in three times per week to help out. For at least the last week she says she is "not walking well" around her house due to pain and weakness. She is not always able to make it to the bathroom in time due to this. She does not cook and meals are provided by [employer]. She denies any recent falls or trauma related to her recent weakness. No history of diabetes. She called EMS today complaining of tooth pain and on their arrival complained of bilateral shoulder pain related to her RA. She seemed forgetful to EMS and it appeared she was not taking her medications by their evaluation. No fever, chills, chest pain, shortness of breath, palpitations, vomiting, diarrhea, urinary complaints, headache, lightheadedness. REVIEW OF SYSTEMS: Aside from elements discussed in the HPI, a comprehensive 10-point review of systems was reviewed and is negative. PAST MEDICAL HISTORY: Rheumatoid arthritis, heart block with permanent pacemaker, hypertension, hypothyroidism, GERD, chronic steroid use, glaucoma, cardiomyopathy, some sort of psychiatric diagnosis on Risperdal and lamotrigine , dementia - [place] SOCIAL HISTORY: Lives alone, caregiver 3x per week. Family lives out of state. Tint Layer: Dr. Gonzalez Prior medical records reviewed including admission 03/22/17 for septic joint. VITAL SIGNS: Reviewed by me GENERAL: Elderly female, no respiratory distress noted. Seems slightly confused. HEENT: Atraumatic. Eyes: No icterus, no injection. Mouth: dry mucous membranes. No erythema or lesions. Dental decay. Left upper incisor broken. Neck: supple with no adenopathy. LUNGS: Clear to auscultation bilaterally, no wheezes, rhonchi or rales. CARDIAC: Regular rate and rhythm, no rubs, gallops. Soft diastolic murmur. ABDOMEN: Soft, nontender, nondistended. BACK: No CVA tenderness. EXTREMITIES: No trauma. No edema. Limited range of motion at both shoulders with pain with movement of the shoulders. No deformities noted. No trauma noted. NEURO: Alert and oriented to person and place, grossly nonfocal. SKIN: Warm and dry. Oval-shaped erythematous rash with some central clearing on legs. PSYCHIATRIC: Normal mentation, no agitation. Portions of this note were transcribed by a medical assistant instructor. I personally performed a history, physical exam, medical decision making, and confirmed accuracy of information the transcribed note. ED Course: 88 y/o female with rheumatoid arthritis and dementia presents with at least one- week history of weakness and difficulty getting around her home independently. Exam is generally benign, she does appear dehydrated. Plan for IV, labs, UA, EKG. 500mL IV NS ordered. The 12 lead EKG was interpreted by myself. AV paced rhythm. See hard copy and/ or "tracemaster" electronic copy for interpretation. Labs unremarkable. Shoulder x-rays: arthritis Case management evaluated this patient. Please see the notes for their input. At this point the patient will be discharged home with a home health referral, referral for PT and OT. Patient's course was also discussed by case management with the patient's primary care physician's office and social work professor. Patient received meloxicam in the emergency department, which she had not taken this morning, and was able to ambulate with no difficulty utilizing a walker. - Data Points Imaging: I viewed and interpreted images myself Laboratory Results: Laboratory Results 12/27/18 09:40 12/27/18 09:40 Medications Given: Discontinued Medications Sodium Chloride (Ns) 500 mls @ 1,000 mls/hr IV EDNOW ONE PRN Reason: Protocol Stop: 12/27/18 10:17 Last Admin: 12/27/18 10:25 Dose: 500 mls Microbiology Results: MICROBIOLOGY 12/27/18 13:20 Urine,Clean Catch Urine Culture - Final Five Or More [place] Types [facility] General Time Seen by Provider: 12/27/18 09:30 Initial Vital Signs: Initial Vital Signs Temperature (C) 36.7 C 12/27/18 09:47 Heart Rate 77 12/27/18 09:47 Respiratory Rate 16 12/27/18 09:47 Blood Pressure 130/70 H 12/27/18 09:47 O2 Sat (%) 95 12/27/18 09:47 O2 Delivery Mode Room Air Allergies/Adverse Reactions: Penicillins Allergy (Severe, Verified 03/22/17 10:48) Hives hydrocodone [Hydrocodone] Allergy (Intermediate, Verified 03/22/17 10:48) nickel [Nickel] Allergy (Verified 03/22/17 10:48) Home Medications: Medication Instructions Recorded Ascorbic Acid [Vitamin C 500 mg 1,000 mg PO DAILY18 04/10/13 (*)] Brimonidine 0.15% [Alphagan P 1 drops EACHEYE BID 04/10/13 0.15%] Estrogens,Conjugated [Premarin 0.625 mg PO Q2D@04/10/13 0.625 MG (*)] Folic Acid [Folic Acid 1 MG (*)] 1 mg PO BID 04/10/13 Thyroid [[place] Thyroid 60 MG (*)] 60 mg PO DAILYAC 04/10/13 predniSONE [Prednisone] 3 mg PO DAILY@04/10/13 Carvedilol [Coreg (*)] 3.125 mg PO DAILY@05/09/14 Dextroamphetamine/Amphetamine 5 mg PO DAILY 05/09/14 [Adderall Xr 5 mg Capsule] Docusate Sodium [Colace 100 MG (*)] 100 mg PO HS 05/09/14 Omeprazole [Prilosec] 40 mg PO HS 05/09/14 Sorbitol/Saliva 1/Malic/C.phos 0.3 gm MM TID PRN 05/09/14 [Numoisyn Lozenge] Spironolactone [Aldactone 25 MG 12.5 mg PO DAILY 05/09/14 (*)] Vit A/Vit C/Vit E/Zinc/Copper 1 each PO DAILY 05/09/14 [Preservision Areds Softgel] traMADol [Ultram 50 mg (*)] 50 - 100 mg PO TID PRN 05/09/14 Cholecalciferol (Vitamin D3) 2,000 unit PO BID 03/22/17 [Vitamin D3] Furosemide [Lasix 20 MG (*)] 20 mg PO DAILY 03/22/17 Ibuprofen [Motrin (*)] 400 mg PO Q6HRS PRN 03/22/17 Meloxicam [Mobic 7.5 mg] 7.5 mg PO DAILY 03/22/17 Memantine HCl 10 mg PO DAILY 03/22/17 Valsartan [Diovan (*)] 40 mg PO DAILY 03/22/17 lamoTRIgine [LaMICtal] 50 mg PO DAILY 03/22/17 risperiDONE [Risperdal 0.25mg (*)] 0.25 mg PO HS 03/22/17 Acetaminophen [Tylenol ES 500 mg 1,000 mg PO TID tab 03/27/17 (*)] Alteplase [Cathflo Activase 2 mg 2 mg IVP PRN PRN #0 vial 03/27/17 (*)] ceFAZolin 1 GM/DEXTROSE [Ancef 1 1 gm IV Q8HRS #0 bag 03/27/17 gm (Premix)] Departure - Departure Disposition: Home, Routine, Self-Care Clinical Impression: Shoulder pain, bilateral Qualifiers: Chronicity: chronic Qualified Code(s): M25.511 - Pain in right shoulder; M25.512 - Pain in left shoulder; M25.512 - Pain in left shoulder; G89.29 - Other chronic pain; G89.29 - Other chronic pain Condition: Good Instructions: Shoulder Pain (ED) Additional Instructions: 1. Take all medications as prescribed. 2. Follow up with home health care resources as discussed. 3. Return to the ED for worsening of condition. Referrals: Paramjit Coy MD [Primary Care Provider] - As per Instructions Report Scribed for: Jasmin Clifton Report Scribed by: Shanta Campo Date of Report: 12/27/18 Time of Report: 09:31
[2018-12-27] MEDS ORDERED: NS 500 ML IV ONE (09:48)
[2018-12-27 09:58] LABS: PLATELET COUNT 323 10^3/uL (150-400)
[2018-12-27 10:00] LABS: INR 0.98 (0.83-1.16); PROTIME(PATIENT) 13.2 SEC (12.0-15.0)
[2018-12-27 13:42] VITALS: BP 137/88
--- NOTE | 2018-12-27 14:58 | ASMTCMCOM ---
CM Note CM Note Notes: Patient is an 88 year old female presenting to the ED via EMS after calling for help due to bilateral shoulder pain. Patient reports that she has been having incresing pain in her shoulders and was "unable to use her walker". Chart reviewed. I have met with patient and discussed her living situation and support in place at home. Patient lives alone in "primarily" a single story home in [place]. She tells me that there is a small section of the home that is a few steps up from the rest of the home but she does not need to access this area. Patient is no longer driving and receives services from [facility] [facility]. Patient also has a personal professional healthcare representative, Nely who visits for 4 hours on Monday and Monday mornings. Patient receives her daily medications in pre prepared packets and Nely assists her with her meds on the days she visits. When asked, patient is not certain she takes ALL of her medications on the days she does not see Nely. Patient is able to confirm her son's name (Desmond), that he lives in [place], and will be arriving next Monday for a visit. Patient admits that one of the reasons for this visit is to talk more seriously about assisted living. Patient acknowledges that Desmond has been encouraging her to move to [place], but she would prefer to stay in [place]. Patient also tells me that she was on a list for [facility] but she turned it down when a room came up. "I may want to reconsider this" patient admits. I discussed my concerns with patient that she may be missing doses of her medications, including her rheumatoid meds and that this may be leading to her increasing discomfort. Patient is receptive to having more help at home and believes she can return home if her shoulders were feeling better. When asked, patient is open to the idea of a HH referral and states that she had HH services in May or June of this year. She cannot recall the name of the HH agency but was happy with the care. Patient's PCP is Dr. Paramjit Coy and I have contacted his MA, Jason. Jason confirms that patient had HH services with [facility] which ended in July and I have explained that patient would likely benefit from another home safety evaluation and an RN for medication management. This CM provided Jason with my contact information for Dr. Coy and asked that he follow patient with HH orders once initiated today in the ED. Meanwhile, I was able to contact patient's son Desmond in [place]. Desmond confirms that he will be in [place] next Monday and has been encouraging patient to increase her home care and consider [place]. Desmond is in agreeement with a HH referral and has informed CM that patient's friend Jessica Cardenas is on her way to pick patient up from the ED D/C plan: Patient has passed a "road test" and is discharged home in the care of Jessica Cardenas. Jessica is available to assist patient as needed tonight and will be available if needed as a contact for HH. Referral sent to Monserrat at [facility] with request for HH safety eval PT/OT? and RN for medication management. Dr. Coy to follow. Patient and Jessica are comfortable with this plan and Desmond (son) is as well. CM available prn Additionally, patient has a friend Jessica Martinez who arrives to the hospital Patient's PCP is Dr. Paramjit Cyo at [facility] . I have contacted KATELYN Gomez at the office to Date Signed: 12/27/2018 02:57 PM Electronically Signed By:Peggy Browning, WILLIAN
--- NOTE | 2018-12-28 13:39 | CPEKG ---
Test Reason : OPEN Blood Pressure : / mmHG Vent. Rate : 075 BPM Atrial Rate : 076 BPM P-R Int : 207 ms QRS Dur : 120 ms QT Int : 420 ms P-R-T Axes : 225 264 158 degrees QTc Int : 470 ms Atrial-ventricular dual-paced rhythm Confirmed by Jasmin Clifton ([id number]) on 12/28/2018 1:38:33 PM Referred By: Jasmin Clifton Confirmed By:Jasmin Clifton
--- NOTE | 2018-12-28 16:49 | ASMTCMCOM ---
CM Note CM Note Notes: Received a voicemail from Lisa Cerda (sp?) ([phone]) stating she was returning a phone call from the other ED CM Peggy yesterday. Lisa states she is no longer the pt's care team assistant but if anyone has any additional questions don't hesitate to call her back. CM available for further assistance if needed. Date Signed: 12/28/2018 04:48 PM Electronically Signed By:Altagracia Nielson RN
== END 2018-12-27 14:01 | disposition home or self-care (01) ==
LOC: EDUNIT#
DX: M25.511 Pain in right shoulder (principal); M25.512 Pain in left shoulder; G89.29 Other chronic pain; M06.9 Rheumatoid arthritis, unspecified; E86.9 Volume depletion, unspecified; I10 Essential (primary) hypertension; I45.9 Conduction disorder, unspecified; E03.9 Hypothyroidism, unspecified; K21.9 Gastro-esophageal reflux disease without esophagitis; F03.90 Unspecified dementia, unspecified severity, without behavioral disturbance, psychotic disturbance, mood disturbance, and anxiety; Z95.0 Presence of cardiac pacemaker; Z79.52 Long term (current) use of systemic steroids

== ENCOUNTER 2019-03-21 16:48 | Emergency (ER) | payer OTHER, BC ==
[2019-03-21] MEDS ORDERED: NS 1,000 ML IV ONE (17:05)
[2019-03-21] MEDS ORDERED: ONDANSETRON 4 MG/2 ML VIAL IVP ONE (17:05)
[2019-03-21] MEDS ORDERED: MECLIZINE HCL 25 MG TAB PO ONE (17:05)
== END 2019-03-21 19:08 | disposition home or self-care (01) ==
DX: R42 Dizziness and giddiness (principal); E86.9 Volume depletion, unspecified; M06.9 Rheumatoid arthritis, unspecified; F32.9 Major depressive disorder, single episode, unspecified; Z95.0 Presence of cardiac pacemaker; Z88.0 Allergy status to penicillin
CPT/HCPCS: 93005; 96361; 96374; 99284; J2405